=== PATIENT | female | born 1930 | race Hispanic/Latino ===

== ENCOUNTER 2016-10-20 17:23 | Inpatient (IN) | payer MEDICAID, OTHER ==
[~2016-10-20] VITALS: Ht 152.4 cm; Wt 73.0 kg
[~2016-10-20 17:23] MED LIST: ALBU8.5H2 INHALATION; CEFU500T PO; D ME PO; METO-386 PO; PRE20 PO; PRED1DRO OU
[2016-10-20 17:29] VITALS: BP 160/85; PULSE 89; RESP 28; O2SAT 97
--- NOTE | 2016-10-20 18:43 | ED.REPORT ---
HPI-Abd Pain F 40 and Over Date of Service Oct 20, 2016 ED Provider: Varun Owen MD Pt is an 86 year old female with a history of a-fib who presents to the ED complaining of RUQ abdominal pain onset yesterday. She c/o associated fever. She denies nausea, vomiting, constipation, chest pain, diarrhea, and any other symptoms. Per pt, her last PO was this morning. She denies a history of appendectomy and cholecystectomy. Nursing Notes Stated Complaint: EXTREME STOMACHE PAIN Chief Complaint: Female Abdominal Pain Nursing Notes Reviewed: Yes Allergies: Coded Allergies: Penicillins (Verified Allergy, Unknown, UNKNOWN, 08/17/13) ampicillin (Verified Allergy, Unknown, UNKNOWN, 08/17/13) Uncoded Allergies: SALMON (Allergy, Unknown, UNKNOWN, 08/17/13) Scheduled Albuterol HFA (Proair HFA) 8.5 Gm Hfa.aer.ad 2 PUFFS INHALATION Q4H Cefuroxime Axetil (Ceftin) 500 Mg Tablet 500 MG PO BID Metoprolol Succinate ER (Metoprolol Succinate ER) 25 Mg Tab.er.24h 25 MG PO DAILY Prednisolone Acetate (Pred Forte) 1 Ml Drops.susp 1 GTT OU QID Prednisone (PredniSONE) 20 Mg Tablet 60 MG PO DAILY Scheduled PRN D-Methorphan/Acetamin/Doxylamn (Vicks Nyquil Cold & Flu Liquid) 236 Ml Liquid 30 ML PO PRN PRN PRN For Congestion General Time Seen by MD: 18:38 Chief Complaint Abdominal pain Hx Obtained From: Patient Arrived By: Walk-in Sudden in Onset?: No Onset Occurred: Yesterday Symptom Duration: Since onset Location: : RUQ Quality: Painful Radiation: : Does not radiate Severity: Current: Moderate Severity: Maximum: Moderate Recent Healthcare: No recent doctor visit, No recent hospitalization Similar Sx Previous: No Past Medical History Past Medical History Cataracts Valvular heart disease Glaucoma Reports: Atrial fibrillation, Urinary tract infection Past Surgical History Denies: Appendectomy, Cholecystectomy Smoking History Never Smoker Social History Alcohol Use: Denies alcohol use Drug Use: Denies drug use Other Social History: Good social support Ambulatory Status Independent Review of Systems Constitutional: Reports: Fever Cardiovascular: Denies: Chest pain GI: Reports: Abdominal pain, Denies: Constipation, Diarrhea, Nausea, Vomiting Complete sys rev & neg: except as marked. Physical Exam Vital Signs Vital Signs (First) Date Time Temp Pulse Resp B/P Pulse Ox O2 Delivery O2 Flow Rate FiO2 10/20/16 17:29 37.9 89 28 160/85 97 Room Air Initial VS: Reviewed Head / Eyes: Atraumatic, Normocephalic Neck: Supple, Full range of motion Extremities: Vascular intact, Neuro intact Skin: Warm, Dry, No cyanosis Neurologic: Alert, Oriented Psychiatric: Mood/affect normal, Behavior normal General/Constitutional: Awake, Alert Respiratory / Chest: Atraumatic, Breath sounds NL, Breath sounds = bilat Cardiovascular: Heart rate NL, Regular rhythm, Heart sounds NL, No murmurs Abdomen: Soft, No guarding, No rebound Tenderness/Guarding/Rebound: Positive: Tender RUQ... (Mild) Back: Atraumatic, Full range of motion Interpretation & Diagnostics Lab Results Interpretation Result Diagram: 10/20/164 10/20/164 Test 10/20/16 18:54 White Blood Count 11.6th/mm3 (3.8-10.1) Red Blood Count 4.41mil/mm3 (3.90-5.20) Hemoglobin 13.0g/dL (12.0-15.6) Hematocrit 38.9% (35.0-46.0) Mean Corpuscular Volume 88.2fL (81-100) Mean Corpuscular Hemoglobin 29.5pg (27.0-35.0) Mean Corpuscular Hemoglobin Concent 33.4% (32.0-37.0) Red Cell Distribution Width 14.7% (12.3-15.4) Platelet Count 226bil/L (150-400) Neutrophils (%) (Auto) 83.4% (40-74) Lymphocytes (%) (Auto) 8.8% (14-46) Monocytes (%) (Auto) 7.0% (4-12) Eosinophils (%) (Auto) 0.3% (0-5) Basophils (%) (Auto) 0.2% (0-3) Sodium Level 138mEq/L (134-144) Potassium Level 3.8mEq/L (3.5-5.2) Chloride Level 101mEq/L (97-108) Carbon Dioxide Level 22mmol/L (18-29) Blood Urea Nitrogen 17mg/dL (8-27) Creatinine 0.55mg/dL (0.57-1.00) Estimat Glomerular Filtration Rate 150mL/min (>59) Glucose Level 134mg/dL (60-99) Lactic Acid Level 1.2mmol/L (0.4-2.0) Calcium Level 8.6mg/dL (8.5-10.1) Magnesium Level 1.9mg/dL (1.6-2.6) Total Bilirubin 2.2mg/dL (0.0-1.2) Aspartate Amino Transf (AST/SGOT) 372U/L (0-50) Alanine Aminotransferase (ALT/SGPT) 189U/L (0-32) Alkaline Phosphatase 165U/L (25-165) Troponin T < 0.010ug/L (0.0-0.011) Total Protein 7.1g/dL (6.4-8.4) Albumin 4.1g/dL (3.4-5.0) Lipase 33U/L (13-60) ECG Interpretation ECG Interpretation: Sinus rhythm with a rate of [address] depression in V4V5 Inverted t-waves, which is unchanged from old Time: 19:08 Interpreted by: ED physician X-Ray Chest Interpretation Chest Xray Interpretation: IMPRESSION: Acute disease is not seen an upright portable chest. Dictated by: Gianni Mccormick M.D. on 10/20/2016 at 19:28 View: Portable, 1 view Interpretation / Wet Read by: Interpret - Radiologist US Abdominal Aorta IMPRESSION: Sludge in the gallder. Common bile duct just above normal limits measuring 7 mm. In the proper clinical setting, nonemergent MRI/MRCP can be done for further evaluation. Transmitted to the ED at 23:14 by Jordi Jimenez M.D. Exam Performed by: Allied health pract (photogrammetric technician) Re-Eval/Medical Decision Med Decision/Clinical Course His external female with right upper quadrant pain 1 day. Elevated LFTs. Lipase is normal. Ultrasound no evidence of cholecystitis there is a mildly dilated common bile duct. I discussed with GI who recommends MRCP. Patient will be admitted for MRCP in the morning. Given one dose of Rocephin and Flagyl given penicillin allergy. Admit hospitalist. Source of Hx: Old records Re-Evaluation/Progress : Time of Eval: 23:14 Re-Evaluation/Progress Note: Pt rechecked. Informed pt of US results. Informed pt of plan for admission. Pt understands and agrees with plan for admission. All questions addressed. Consultation #1: Referral / Consult Name: Kalpana Parks MD Call Returned at: 23:42 Banana Expert: Agrees with eval, Agrees with plan Note: Discussed pt's case. Recommends admission for MRCP in morning. Consultation #2: Referral / Consult Name: Yon Moody MD Consulted With: Hospitalist Call Returned at: 23:52 Banana Expert: Will see patient, Agrees with eval, Agrees with plan, Accepts admit Counseled Regarding: Diagnosis, Lab results, Need for admission Discharge & Departure Primary Impression: Elevated LFTs Additional Impression: Hepatitis Disposition: ADMITTED TO HOSPITAL Discharge Condition All VS Reviewed: Yes Condition: Stable Referrals: Arminda Jiménez MD (PCP) Scribe Attestation Portions of this note were transcribed by Maxine Thomson. I, Dr. Owen personally performed the history, physical exam and medical decision-making; I reviewed and confirmed the accuracy of the information in the transcribed note. Signed by: Papo Ness, 10/20/16. copies to: Arminda Jiménez MD, Ben M MD Oct 20, 2016 18:43 Maxine Whittaker Oct 20, 2016 19:49
[2016-10-20 18:57] LABS: BASOPHILS % (AUTO) 0.2 % (0-3); EOSINOPHILS % (AUTO) 0.3 % (0-5); Mean Corpuscular Hemoglobin 29.5 pg (27.0-35.0); Mean Corpuscular Volume 88.2 fL (81-100); NEUTROPHILS % (AUTO) 83.4 % (40-74); Platelet Count 226 bil/L (150-400)
[2016-10-20 19:21] LABS: TROPONIN T < 0.010 ug/L (0.0-0.011)
[2016-10-20 19:31] LABS: Magnesium 1.9 mg/dL (1.6-2.6)
--- NOTE | 2016-10-20 19:31 | DRSVH ---
PROCEDURE: X-RAY CHEST ONE VIEW, PORTABLE ([id number]) INDICATIONS: abd pain TECHNIQUE: One view of the chest was acquired. COMPARISON: [facility], CR, XR CHEST 2VW, 07/19/2016, 15:36. FINDINGS: Surgical changes and devices: None. Lungs and pleura: No pleural effusions or pneumothorax. Lungs are clear. Mediastinum: Mediastinal contours appear normal. Here is elongated and the great vessels are tortuou s. These findings are unchanged since previous chest x-rays. Heart size is normal. Bones and chest wall: No suspicious bony lesions. Overlying soft tissues appear unremarkable. IMPRESSION: Acute disease is not seen an upright portable chest. Dictated by: Gianni Mccormick M.D. on 10/20/2016 at 19:28 Approved by: Gianni Mccormick M.D. on 10/20/2016 at 19:29
[2016-10-20] MEDS ORDERED: 0.9% Sodium Chloride 500 ML IV ONE (19:47)
[2016-10-20] MEDS ORDERED: Ondansetron 2 mg/mL 2 mL Inj IVPUSH PRN (19:50)
[2016-10-21] VITALS (8 sets, daily range): BP systolic 124–140; BP diastolic 44–71; PULSE 59–73; RESP 15–18; O2SAT 92–94
[2016-10-21] MEDS ORDERED: cefTRIAXone Inj 2,000 MG in Dextrose 5% Minibag Plus 50 ML IV ONE ×2
[2016-10-21] MEDS ORDERED: metroNIDAZOLE Inj 500 MG in IV Premix 1 EACH IV ONE
[2016-10-21] MEDS ORDERED: Lactated Ringer's 1,000 ML IV SCH (00:12)
[2016-10-21] MEDS ORDERED: Polyethylene Glycol (PEG) 17 Gm Powder PO PRN (00:15)
[2016-10-21] MEDS ORDERED: Ondansetron 2 mg/mL 2 mL Inj IVPUSH PRN (00:15)
[2016-10-21] MEDS ORDERED: Alum-Mag Hydrox-Simeth 30 mL Suspension PO PRN ×2 (00:15)
--- NOTE | 2016-10-21 00:51 | PCM.HPMED ---
Subjective Date of Service Oct 20, 2016 Primary Provider: Admitting Physician: Primary Care Physician: Arminda Jiménez MD Attending Physician: Admit Status: From the Emergency Department Chief Complaint: Stomach pain History of Present Illness: Ms. Ny is an 86-year-old female with a past medical history significant for atrial fibrillation who presented to the ED with extreme right upper quadrant abdominal pain that started yesterday. She states the pain was worse with eating or drinking, and nothing makes it better. The pain is a sharp intermittent pain that does not radiate outside the right upper quadrant. She reports having intermittent fevers with nausea and denies any vomiting, chest pain, diaphoresis, diarrhea, recent diet changes. She has never experienced anything like this before. Review of Systems: Comprehensive review of systems was conducted with the patient and found to be negative except as noted above in HPI. Allergies Coded Allergies: Penicillins (Verified Allergy, Unknown, UNKNOWN, 08/17/13) ampicillin (Verified Allergy, Unknown, UNKNOWN, 08/17/13) Uncoded Allergies: SALMON (Allergy, Unknown, UNKNOWN, 08/17/13) Home Medications Albuterol HFA (Proair HFA) 8.5 Gm Hfa.aer.ad 2 PUFFS INHALATION Q4H Cefuroxime Axetil (Ceftin) 500 Mg Tablet 500 MG PO BID Metoprolol Succinate ER (Metoprolol Succinate ER) 25 Mg Tab.er.24h 25 MG PO DAILY Prednisolone Acetate (Pred Forte) 1 Ml Drops.susp 1 GTT OU QID Prednisone (PredniSONE) 20 Mg Tablet 60 MG PO DAILY Scheduled PRN D-Methorphan/Acetamin/Doxylamn (Vicks Nyquil Cold & Flu Liquid) 236 Ml Liquid 30 ML PO PRN PRN PRN For Congestion PMH Cataracts Valvular heart disease Glaucoma Atrial fibrillation Urinary tract infections Surgical History Denies Family History Denies Social History Hx Alcohol Use: No Hx Substance Use: No Smoking Status: Never Smoker Living Arrangement: with Family Exam Vital Signs Vital Sign - Last Date Time Temp Pulse Resp B/P Pulse Ox O2 Delivery O2 Flow Rate FiO2 10/20/16 17:29 37.9 89 28 160/85 97 Room Air Intake and Output 10/20/16 10/20/16 10/21/16 Cumulative From/Thru 15:00 23:00 07:00 10/20/16 20:27 - 10/20/16 20:27 Intake Total 500 ml 500 ml Balance 500 ml 500 ml Intake IV Total 500 ml 500 ml Exam General: Elderly female in no acute distress, well-developed, well- nourished, appropriately interactive HEENT: Normocephalic, atraumatic. External ears without defect. Pupils equal, round, and reactive to light and accommodation. Anicteric sclerae, moist conjunctivae, and no lid lag. Oropharynx free of erythema and cobble stoning with moist mucosa. Neck: Supple with full range of motion. No jugular venous distension. No bruits. No lymphadenopathy or thyromegaly. Cardiovascular: Regular rate and rhythm with no murmurs, rubs, or gallops appreciated Pulmonary: Clear to auscultation bilaterally with no crackles, wheezes, or rhonchi. Normal respiratory effort with no use of accessory muscles. Abdomen: Bowel tones present. Soft, nondistended, tenderness in the RUQ without guarding or rebound. No hepatosplenomegaly or masses appreciated. Extremities: No clubbing, cyanosis, edema, or lymphadenopathy appreciated. Skin: Normal temperature, turgor, and texture; no rash, ulcers, or subcutaneous nodules appreciated. Neurological: Cranial nerves grossly intact. Normal muscle strength, tone, and bulk without focal deficit. Psychiatric: Normal mood and affect. Alert and oriented to person, place, and time. Lab and Diagnostics Result Diagram: 10/20/16185310/20/161853 Microbiology Blood cultures, pending X-Rays, CTs and MRIs Abdominal ultrasound, 10/20/2016 IMPRESSION: Sludge in the gallbladder. Common bile duct just above normal limits measuring 7 mm. In the proper clinical setting, nonemergent MRI/MRCP can be done for further evaluation. Transmitted to the ED at 23:14 by Jordi Jimenez M.D. Chest x-ray 10/20/2016 IMPRESSION: Acute disease is not seen an upright portable chest. Dictated by: Gianni Mccormick M.D. on 10/20/2016 at 19:28 Approved by: Gianni Mccormick M.D. on 10/20/2016 at 19:29 12-lead ECG ECG Interpretation: Sinus rhythm with a rate of [address] depression in V4V5 Inverted t-waves, which is unchanged from old Time: 19:08 Interpreted by: ED physician Assessment & Plan Ms. Ny is an 86-year-old female with a past medical history significant for atrial fibrillation who presented to the ED with extreme right upper quadrant abdominal pain that started yesterday 10/19/2016. She has been unable to eat anything for about 24 hours. Right upper quadrant abdominal pain, present on admission. Acute. Ongoing. - Patient has RUQ abdominal pain, worse with eating with elevated LFTs (AST 372 , ALT 189, total bili 2.2) - Ultrasound significant for dilated common bile duct, sludgy gallbladder - Dr. Rock of Gastroenterology consulted from the ED, appreciate his recommendations: MRCP in the morning Start antibiotics NPO after midnight - Continue ceftriaxone 2 g daily and metronidazole 500 mg daily - IVF NS at 60cc/hr as patient is complaining of extreme thirst but she has an unclear cardiac history; monitor for fluid overload COPD, present on admission. Chronic. - Continue albuterol 2 puffs every 4 hours - Continue prednisone 60 mg daily History of atrial fibrillation, present on admission. Chronic. - Patient in NSR - Monitor on telemetry - Continue metoprolol succinate 25 mg daily PRN Medications - Acetaminophen as needed for mild pain/fever/headache - Bowel regimen as needed - Antiemetic as needed - Subcutaneous heparin on board. SCDs in place. Patient status: Patient is admitted under inpatient status with expected length of stay greater than 2 midnights due to severity of presenting symptoms, risk of adverse event, and complexity of treatment plan. VTE Prophylaxis: Sub-Q Heparin (Unfractionated) VTE Mechanical Devices: Intermittant Pneumatic CD Resuscitation Status: CPR: Attempt Resuscitation Attending Statement The patient was seen and examined together with Dr. Irby on 10/20 and I agree with the history, exam and plan as outlined in the note above. Michael Irby DO Oct 21, 2016 00:51 Yon Moody MD Oct 21, 2016 06:48
[2016-10-21] MEDS ORDERED: 0.9% Sodium Chloride 1,000 ML IV SCH (01:10)
[2016-10-21] MEDS: Heparin 5,000 Unit/mL Inj SUBQ SCH ×3 (03:36→17:51)
[2016-10-21 05:27] LABS: BASOPHILS % (AUTO) 0.1 % (0-3); EOSINOPHILS % (AUTO) 2.1 % (0-5); MONOCYTES % (AUTO) 8.3 % (4-12); Mean Corpuscular Hemoglobin 29.2 pg (27.0-35.0); Mean Corpuscular Volume 88.3 fL (81-100); NEUTROPHILS % (AUTO) 68.7 % (40-74); Platelet Count 210 bil/L (150-400)
[2016-10-21] MEDS: metroNIDAZOLE Inj 500 MG in IV Premix 1 EACH IV SCH ×2 (10:18→22:29)
[2016-10-21 11:03] LABS: APPEARANCE,URINE CLEAR (CLEAR,HAZY); COLOR,URINE DARK YELLOW (YELLOW)
[2016-10-21 11:04] LABS: OCCULT BLOOD,URINE SMALL (NEGATIVE); UROBILINOGEN,URINE NORMAL (NORMAL)
[2016-10-21 11:05] LABS: ICTOTEST,URINE POSITIVE (Negative)
--- NOTE | 2016-10-21 12:06 | DRSVH ---
PROCEDURE: US ABDOMEN, LIMITED ([id number]) INDICATIONS: RUQ US TECHNIQUE: Real-time focused scanning was performed of the abdomen, with image documentation. COMPARISON: None. FINDINGS: There are gallstones. The gallbladder wall measures 2.4 mm. Common bile duct is slightly pr ominent measuring 7.3 mm. IMPRESSION: Cholelithiasis. Prominent common bile duct. Please correlate with serum bilirubin. If cl inical symptoms persist or clinical suspicion for pathology is high, MRCP is suggested for further ev aluation. No significant discrepancy with the shift commander radiology preliminary report. Dictated by: Marvin Rodriguez M.D. on 10/21/2016 at 12:02 Approved by: Marvin Rodriguez M.D. on 10/21/2016 at 12:05
--- NOTE | 2016-10-21 15:23 | DRSVH ---
PROCEDURE: MR ABDOMEN MRCP INDICATIONS: dilated CBD, severe RUQ pain TECHNIQUE: Coronal HASTE through the abdomen, axial 2-D FLASH in- and [id number], and breath-hold T2 FSE with fat saturation through the biliary system and pancreas. Oblique coronal and axial thin-slice HASTE, radial thick-slab HASTE centered on the extrahepatic bile ducts. Intravenous secretin: Not requested. COMPARISON: None. FINDINGS: Image quality: Exam is severely suboptimal secondary to excessive, uncontrollable motion artifact Pancreas and biliary system: Intrahepatic bile ducts appear normal in size although only partially vi sualized. There is dilation of the extrahepatic bile ducts, measuring at least 10 mm however evaluati on limited by motion artifact. Due to motion artifact, intraluminal filling defects cannot be exclude d. Pancreas is normal in morphology, without adjacent soft tissue edema. Pancreatic duct is normal in caliber, without developmental anomalies. Gallbladder is partially obscured by motion artifact. The previously described gallstones are not well-seen as a result. Other solid organs: Liver and spleen are normal in size. No adrenal nodules. No definite hydronephr osis. Suboptimally evaluated multiple presumed right renal cysts. Nodes and vessels: No retroperitoneal or mesenteric adenopathy by size criteria. Aorta and inferior vena cava are normal in size. Bowel and peritoneum: Unenhanced bowel loops are normal in caliber. No free fluid. Lung bases: No basal pleural effusions. Heart size is normal. Bones and soft tissues: No ventral hernias. Lateral curvature of the spine. Bone marrow is of oksana l overall signal. IMPRESSION: Essentially nondiagnostic examination due to uncontrollable motion artifact. Dilated extr ahepatic bile ducts are again noted however intraluminal filling defects (while not discretely visual ized) cannot be excluded due to motion degraded images. Dictated by: Epifanio Del Real M.D. on 10/21/2016 at 15:15 Approved by: Epifanio Del Real M.D. on 10/21/2016 at 15:21
[2016-10-21 20:33] LABS: INR 1.02 ratio
[2016-10-21] MEDS: cefTRIAXone Inj 2,000 MG in Dextrose 5% Minibag Plus 50 ML IV SCH (23:24)
[2016-10-21] MEDS: Dextrose 5% 0.9% NaCl 1,000 ML IV SCH (23:24)
[2016-10-22] VITALS (9 sets, daily range): BP systolic 131–176; BP diastolic 54–78; PULSE 55–67; RESP 16–20; O2SAT 93–94
[2016-10-22] MEDS: Heparin 5,000 Unit/mL Inj SUBQ SCH ×3 (00:49→16:30)
[2016-10-22 06:27] LABS: BASOPHILS % (AUTO) 0.3 % (0-3); EOSINOPHILS % (AUTO) 7.4 % (0-5); MONOCYTES % (AUTO) 10.5 % (4-12); Mean Corpuscular Hemoglobin 29.1 pg (27.0-35.0); Mean Corpuscular Volume 90.6 fL (81-100); NEUTROPHILS % (AUTO) 50.6 % (40-74); Platelet Count 190 bil/L (150-400)
[2016-10-22] MEDS: metroNIDAZOLE Inj 500 MG in IV Premix 1 EACH IV SCH ×2 (08:19→19:39)
--- NOTE | 2016-10-22 08:35 | PCM.PNMED ---
Subjective Date of Service Oct 22, 2016 Subjective Patient seen and examined. Says there is no pain anymore. Discussed with Dr. Rock ( GI), she might have already passed the stone. Will get surgery to see the patient for possible cholecystectomy. Vitals noted. Exam Vital Signs Vital Sign - Last Date Time Temp Pulse Resp B/P Pulse Ox O2 Delivery O2 Flow Rate FiO2 10/22/16 06:23 65 10/22/16 05:40 36.4 16 131/54 94 10/22/16 01:20 Room Air Intake and Output 10/21/16 10/21/16 10/22/16 Cumulative From/Thru 15:00 23:00 07:00 10/20/16 20:27 - 10/22/16 06:11 Intake Total 726 ml 728 ml 2105 ml Output Total 0 ml Balance 726 ml 728 ml 2105 ml Intake Oral 0 ml IV Total 726 ml 728 ml 2105 ml Output Urine Total 0 ml Exam General: Elderly female in no acute distress, well-developed, well- nourished, appropriately interactive Cardiovascular: Regular rate and rhythm with no murmurs, rubs, or gallops appreciated Pulmonary: Clear to auscultation bilaterally with no crackles, wheezes, or rhonchi. Normal respiratory effort with no use of accessory muscles. Abdomen: Bowel tones present. Soft, nondistended, tenderness in the RUQ without guarding or rebound. No hepatosplenomegaly or masses appreciated. Extremities: No clubbing, cyanosis, edema, or lymphadenopathy appreciated. Skin: Normal temperature, turgor, and texture; no rash, ulcers, or subcutaneous nodules appreciated. Lab and Diagnostics Result Diagram: 10/22/16 0530 10/22/16 0530 Microbiology Blood cultures, pending X-Rays, CTs and MRIs Abdominal ultrasound, 10/20/2016 IMPRESSION: Sludge in the gallbladder. Common bile duct just above normal limits measuring 7 mm. In the proper clinical setting, nonemergent MRI/MRCP can be done for further evaluation. Transmitted to the ED at 23:14 by Jordi Jimenez M.D. Chest x-ray 10/20/2016 IMPRESSION: Acute disease is not seen an upright portable chest. Dictated by: Gianni Mccormick M.D. on 10/20/2016 at 19:28 Approved by: Gianni Mccormick M.D. on 10/20/2016 at 19:29 12-lead ECG ECG Interpretation: Sinus rhythm with a rate of [address] depression in V4V5 Inverted t-waves, which is unchanged from old Time: 19:08 Interpreted by: ED physician Assessment & Plan Ms. Ny is an 86-year-old female with a past medical history significant for atrial fibrillation who presented to the ED with extreme right upper quadrant abdominal pain that started yesterday 10/19/2016. She has been unable to eat anything for about 24 hours. Right upper quadrant abdominal pain, present on admission. Acute. Ongoing. - Patient has RUQ abdominal pain, worse with eating with elevated LFTs (AST 372 , ALT 189, total bili 2.2) at admission, LFTs and bili trended down today - Dr. Rock of Gastroenterology consulted, based on the lab results, plan is to get surgery on board for possible cholecystectomy - Continue ceftriaxone 2 g daily and metronidazole 500 mg daily h/o bronchiti not active - patient not sure if she has, has not received steroids inpatient so far - she was in ER in 2016, was prescribed prednisone then - CXR clear, no signs of COPD History of atrial fibrillation as per admission - Patient in NSR - Monitor on telemetry, has been sinus since admission - patient has not taken any meds in last 2 years. PRN Medications - Acetaminophen as needed for mild pain/fever/headache - Bowel regimen as needed - Antiemetic as needed - Subcutaneous heparin on board. SCDs in place. Patient status: Patient is admitted under inpatient status with expected length of stay greater than 2 midnights due to severity of presenting symptoms, risk of adverse event, and complexity of treatment plan. VTE Prophylaxis: Sub-Q Heparin (Unfractionated) VTE Mechanical Devices: Intermittant Pneumatic CD Resuscitation Status: CPR: Attempt Resuscitation Time spent 35 ,mins Prashant Thurston MD Oct 22, 2016 08:35 Prashant Thurston MD Oct 22, 2016 08:35
--- NOTE | 2016-10-22 12:41 | DRSVH ---
[facility] [address] [place] [address] Echocardiogram Report Name: JEIMY PRIEST Study Date: 10/22/2016 Height: 60 in Hospital Exam Location: [facility] Weight: 145 lb Gender: Female BSA: 1.6 m2 : 1930 Age: 86 yrs BP: 137/65 mmHg Reason For Study: Pre-surgical evaluation Ordering Physician: Performed By: Alice Ochoa Referring Physician: Dr. Arminda Jiménez Interpretation Summary 1. Normal left ventricular size with proximal septal thickening and an estimated EF of 50-55% 2. Normal right ventricular size and systolic function. 3. Mean aortic valve gradient is consistent with mild valvular stenosis. Mild insufficiency 4. Mild to moderate mitral regurgitation into a dilated left atrium. Compared to the previous study, LV/RV function are relatively stable. There has been some progression of aortic valve disease Procedure: A two-dimensional transthoracic echocardiogram with color flow and Doppler was performed. The study quality was technically adequate. Comparison is made with the echocardiogram of 07/24/2013. The patient had frequent PVCs during the exam. The patient was in normal sinus rhythm during the exam. Left Ventricle: The left ventricle is normal in size. Proximal septal thickening is noted. The ejection fraction is estimated to be 50-55%. There are no focal wall motion abnormalities. Assessment of diastolic parameters suggests a pseudonormalization pattern, consistent with elevated filling pressures. Right Ventricle: The right ventricle is normal in size and function. Atria: The left atrium is severely dilated. The right atrium is moderately dilated. There is no Doppler evidence for an interatrial shunt. Mitral Valve: The mitral valve chordae are thickened and/or calcified. The mitral valve leaflets are mildly calcified. There is mild to moderate mitral regurgitation. The mitral regurgitant jet is eccentrically directed. Aortic Valve: The aortic valve is trileaflet. The aortic valve is mildly calcified. The peak aortic velocity is 2.2 m/sec. The aortic valve mean gradient is 9.4 mmHg. The peak aortic velocity on the previous exam was 2.3 m/sec. Velocity ratio 0.46. Mean gradient is consistent with mild valvular stenosis. Velocity ratio suggests mild to moderate stenosis. There is mild aortic regurgitation. Tricuspid Valve: The tricuspid valve leaflets are thin and pliable. There is mild tricuspid regurgitation. The right ventricular systolic pressure is estimated at 43 mmHg assuming a right atrial pressure of 3 mm Hg. Pulmonic Valve: The pulmonic valve is not well visualized. There is trace pulmonic regurgitation. Great Vessels: The aortic root is normal size. There is aortic root sclerosis/calcification. The ascending aorta is normal in size. The IVC is of normal diameter and collapses greater than 50% with a sniff. This suggests a low right atrial pressure of 3 mm Hg. Pericardium/ Pleura There is no pericardial effusion. MMode/2D Measurements & Calculations LVIDd: 4.6 cm RA long axis LVOT diam LVIDs: 3.4 cm LA A2 area: 27.7 cm FS: 25.3 % LA A4 area: 24.8 cm RA area AoV Opening EPSS: 1.2 cm LA length (vol): 6.0 cm IVSd: 1.5 cm LA vol: 96.4 ml : 21.1 cm Ao root diam LVPWd: 0.80 cm LA vol index RA vol : 65.7 ml Aortic Jxn RA IVC diam: 1.9 cm : 40.3 mm2 asc Aorta Diam: 3.4 cm LV fried. diameter/BSA LV sys. diameter/BSA RVD1 (basal) RVD2 (mid) (cm/m^2): 2.8 (cm/m^2): 2.1 : 2.3 cm TAPSE: 2.1 cm Doppler Measurements & Calculations Ao V2 max MV E max issa MV E/A: 1.2 TR max issa : 218.9 cm/sec : 111.9 cm/sec Med Peak E' Issa : 316.0 cm/sec Ao max PG MV A max issa TR max PG : 19.2 mmHg : 92.7 cm/sec E/E' med: 28.5 : 40.0 mmHg Ao mean PG MV P1/2t: 44.9 msecLat Peak E' Issa PA V2 max : 73.2 cm/sec LVOT Max Issa MR ERO: 0.14 cm2 E/E' lat: 16.3 PA mean PG : 89.9 cm/sec E/e' average: 22.4 PA Accel Time JONI(I,D): 1.3 cm : 0.09 sec sev ratio AI P1/2t : 565.7 msec AI dec slope : 231.5 cm/s2c MV dec time MV P1/2t max issa Ao V2 mean LV V1 max PG : 0.15 sec : 142.8 cm/sec MVA(P1/2t): 4.9 cm2Ao V2 VTI: 51.6 cm LV V1 VTI JONI(V,D): 1.2 cm2 : 23.3 cm MR flow rate PA V2 mean JONI indexed to BSA : 49.2 cm/sec (cm^2/m^2): 0.78 : 74.2 cm3/sec MR PISA radius Reading Physician:12:40 PM
--- NOTE | 2016-10-22 14:31 | CONS ---
[address] [address] CONSULTATION REPORT PATIENT: JEIMY PRIEST : 1930 MR#: [id number] ADMIT: 10/21/2016 JOB ID: [id number] DATE OF SERVICE: 10/22/2016 CHIEF COMPLAINT: An 86-year-old lady with cholelithiasis and possible choledocholithiasis seen in consultation at the request of Prashant Thurston MD, and Toan Parks MD. HISTORY OF PRESENT ILLNESS: The patient is an 86-year-old lady who presented to the emergency department two days ago with severe right-sided abdominal pain. She has had a similar episode around a year ago. The pain was worse with food intake and it was not getting better. She was evaluated in the emergency department and was diagnosed with possible common bile duct stones and was admitted with antibiotics and has been kept without eating. Dr. Parks and Dr. Thurston consulted me today because on the MRCP she had done today it was not clear that she had retained common bile duct stones and her liver function tests were indeed improving. Her pain seems to have resolved and at this moment she is not having any abdominal pain. OTHER MEDICAL PROBLEMS: 1. Atrial fibrillation in the past. 2. Urinary tract infections. 3. Bronchitis. 4. The admitting history and physical talks about chronic obstructive pulmonary disease, but I do not see any evidence of this and she denies smoking in her lifetime. PRIOR OPERATIONS: None. SOCIAL HISTORY: She lives with her daughter. She speaks only Polish, and she reports being able to walk without any problems. She is generally active but she does not go up stairs. FAMILY HISTORY: No family history of cancer or heart disease. SOCIAL HISTORY: Again, she has never smoked. She does not consume alcohol. MEDICATIONS AT HOME: None. ALLERGIES: 1. PENICILLIN. 2. AMPICILLIN. REVIEW OF SYSTEMS: Twelve point review of systems negative other than the pertinent positives noted in the history of present illness and other medical problems. INVESTIGATIONS: Labs from October 22, 2016: WBC 6.1, hemoglobin 11.8, platelet count 190. Bilirubin 1.0, down from 2.8. AST 110, down from 372. ALT 147, down from 250. Albumin 3.1. Creatinine 0.4. INR 1.02. Chest x-ray, from October 20, 2016, was normal. Abdominal ultrasound, from October 20, 2016, showed gallstones with gallbladder wall measuring 2.4 mm and common bile duct measuring 7.3 mm. MRCP, performed on October 21, 2016, showed some dilation of the extrahepatic bile duct measuring 10 mm, but there was significant motion artifact and intraluminal filling defects could not be clearly visualized. PHYSICAL EXAM: An 86-year-old lady in no acute distress. Temperature 36.4, BMI 28.4, pulse 65, blood pressure 132/62, saturating 93% on room air. Eyes: Normal pupils, conjunctivae. Ears, nose, and throat: Normal external appearance. Respiratory normal effort, clear to auscultation. Cardiovascular: Regular rate and rhythm. Gastrointestinal: Abdomen soft. Nontender to palpation. Neurologic: No gross deficits. Psych: Alert, appropriate. Skin normal. ASSESSMENT AND PLAN: Cholelithiasis with possible choledocholithiasis. I discussed the pathophysiology and treatment rationale for gallstone disease and recommended laparoscopic cholecystectomy with cholangiogram. I discussed her case with Dr. Parks and Dr. Thurston, and as long as she has not been on chronic steroids and she is medically stable for an operation, I believe proceeding with a laparoscopic cholecystectomy with cholangiogram with plans for an ERCP if I am not able to clear any retained common bile duct stones is appropriate. Discussed the risks, benefits, and the alternatives, and she wished to proceed. The entire visit was undertaken with the help of a agricultural agent.
--- NOTE | 2016-10-22 16:13 | CONS ---
[address] [address] CONSULTATION REPORT PATIENT: JEIMY PRIEST : 1930 MR#: [id number] ADMIT: 10/21/2016 JOB ID: [id number] DATE OF SERVICE: REASON FOR CONSULTATION: Suspected choledocholithiasis. PHYSICIAN REQUESTING CONSULTATION: Varun Owen MD. HISTORY OF PRESENTING ILLNESS: The patient is an 86-year-old woman with past medical history of atrial fibrillation who presented to the emergency department with an episode of right upper quadrant pain the day prior to admission. Pain worsened with eating and drinking. There were no relieving factors. She describes the pain as a sharp pain without radiation in the right upper quadrant. She denied any associated vomiting or nausea. She did have subjective fevers. She had a similar episode, as per patient's granddaughter, about a month ago. Currently, she is without any pain. On admission to the emergency department, she was noted to have LFTs that were elevated with a total bili of 2.2, AST of 372, ALT of 189, alk phos of 165. This then worsened the following day to a total bili of 2.8 and AST of 345 and ALT of 250, alkaline phosphatase of 180. Today, her LFTs have improved to where her total bili has normalized and her AST is now 110, ALT is 147, and alkaline phosphatase is 152. She has had multiple imaging tests of the abdomen which included an ultrasound of the abdomen which showed cholelithiasis, a common bile duct measuring approximately 7.3 mm. This then led to an MRCP which revealed a dilated bile duct measuring approximately 10 mm. However, it was a poor study and no obvious filling defects were noted. As her LFTs improved today and she remains asymptomatic, I had recommended that General Surgery be consulted for laparoscopic cholecystectomy with intraoperative cholangiogram. PAST MEDICAL HISTORY: Significant for valvular heart disease, atrial fibrillation, glaucoma, urinary tract infections, and cataracts. PAST SURGICAL HISTORY: No past surgical history. FAMILY HISTORY: No significant family history. SOCIAL HISTORY: No alcohol or tobacco use. She lives with family. HOME MEDICATIONS: Include: 1. Albuterol. 2. Ceftin which she has been taking 500 mg p.o. b.i.d. 3. Prednisone eye drops. 4. Oral prednisone 60 mg daily. ALLERGIES: She has allergies to: 1. PENICILLIN. 2. SALMON. Her 10-point review of systems is otherwise unremarkable. CURRENT HOSPITAL MEDICATIONS: Include: 1. Ceftriaxone 2 g daily. 2. Metronidazole 500 mg IV q.12. 3. Heparin subcu 5000 units q.8. 4. Maalox p.r.n. 5. Zofran p.r.n. 6. Senokot p.r.n. 7. Polyethylene glycol p.r.n. 8. Tylenol p.r.n. PHYSICAL EXAM: Her temperature is 36.7. her pulse is 63. blood pressure is 157/76, respiratory rate is 20, O2 saturation 94% on room air. Generally, she is an elderly-appearing woman in no apparent distress. HEENT: No pallor. No icterus. Oropharynx is clear. Chest exam is clear to auscultation bilaterally. Cardiovascular exam: Regular rate and rhythm. Abdomen is soft, nontender, nondistended, without hepatosplenomegaly. Extremities without edema, clubbing or cyanosis. Please see EMR for laboratory data and imaging test results. ASSESSMENT/PLAN: An 86-year-old woman presenting with acute onset epigastric pain with cholestatic liver function tests and dilated bile duct on imaging tests. As her LFTs have improved and her pain has resolved, I suspect she may have passed a common bile duct stone. Therefore, recommend surgical consultation with laparoscopic cholecystectomy, intraoperative cholangiogram, and if her intraoperative cholangiogram should reveal any filling defects, I will be available for ERCP to clear these filling defects. This was discussed with the primary team as well as the patient and they all stated understanding. Thanks for allowing me to participate in the patient's care. If you have any further questions, please do not hesitate to contact me.
[2016-10-22] MEDS: diphenhydrAMINE-Zinc 2%-0.1% 30 Gm Cream TOPICAL PRN (17:51)
[2016-10-22] MEDS: Dextrose 5% 0.9% NaCl 1,000 ML IV SCH (17:51)
[2016-10-23] VITALS (13 sets, daily range): BP systolic 149–199; BP diastolic 63–86; PULSE 58–81; RESP 12–19; O2SAT 92–99
[2016-10-23] MEDS: cefTRIAXone Inj 2,000 MG in Dextrose 5% Minibag Plus 50 ML IV SCH (00:36)
[2016-10-23] MEDS: Heparin 5,000 Unit/mL Inj SUBQ SCH ×3 (00:37→16:09)
[2016-10-23] MEDS: Dextrose 5% 0.9% NaCl 1,000 ML IV SCH ×2 (04:00→20:40)
[2016-10-23 05:45] LABS: BASOPHILS % (AUTO) 0.4 % (0-3); EOSINOPHILS % (AUTO) 5.7 % (0-5); MONOCYTES % (AUTO) 10.1 % (4-12); Mean Corpuscular Hemoglobin 29.1 pg (27.0-35.0); Mean Corpuscular Volume 91 fL (81-100); NEUTROPHILS % (AUTO) 49.8 % (40-74); Platelet Count 236 bil/L (150-400)
--- NOTE | 2016-10-23 07:07 | PCM.HPANE ---
Patient Data Surgeon Admitting Provider:Yon Moody MD Attending Provider:Prashant Thurston MD Primary Care Physician:Arminda Jiménez MD Other Provider: Reason for Visit Hepatitis HEPATITIS Ht/WT & BMI Height (Feet): 5 Height (Inches): 0.00 Weight (Kilograms): 67.600 Body Mass Index 28.83 Allergies Coded Allergies: Penicillins (Verified Allergy, Unknown, UNKNOWN, 08/17/13) ampicillin (Verified Allergy, Unknown, UNKNOWN, 08/17/13) Uncoded Allergies: SALMON (Allergy, Unknown, UNKNOWN, 08/17/13) Past Anesthesia History Anesthesia History: Denies:: Anesthesia Reactions, Malignant Hyperthermia Diabetes History Hx Diabetes?: No Current Bedside Blood Glucose: 109 MRSA MRSA: No Medications Active Scripts Cefuroxime Axetil (Ceftin)500 Mg [id number] Mg PO BID #20 TAB Prov:Deric Luna MD 04/13/15 Prednisone (PredniSONE)20 Mg [id number] Mg PO DAILY #15 TABLET Prov:Deric Luna MD 04/13/15 Albuterol HFA (Proair HFA)8.5 Gm Hfa.aer.ad2 Puffs INHALATION Q4H #1 INHALER Prov:Deric Luna MD 04/13/15 Reported Medications Prednisolone Acetate (Pred Forte)1 Ml Drops.susp1 Gtt OU QID 08/17/13 D-Methorphan/Acetamin/Doxylamn (Vicks Nyquil Cold & Flu Liquid)236 Ml Frxczb82 Ml PO PRN PRN For Congestion 08/17/13 Metoprolol Succinate ER 25 Mg Tab.er.24h25 Mg PO DAILY 30 Days Ref 0 08/17/13 History History of ENT Problems?: Yes HEENT History: Positive for:: Cataracts (S/P EXTRACTIONS) Denture Type: None Teeth Condition: Tooth Decay Missing Teeth Hx of Heart Problems?: Yes Cardiovascular History: Positive for:: Atrial Fibrillation (SHORT BURST PAF) Chest Pain (ATYPICAL HOSP 07/23/13 MPS WNL) Heart Murmur (ECHO 06/2013) Irregular Heartbeat (HOSP 07/09-SHORT BURST PAF NOTED) Valvular Heart Disease (MILD MR,AR) Denies:: Congestive Heart Failure Hypertension Hx of Respiratory Problem?: Yes Respiratory History: Positive for:: Dyspnea (W/ ATYPICAL CHEST PAIN) Pneumonia (YEAR AGO) Denies:: Tuberculosis Use of C-PAP Machine Hx Neurologic Problems?: Yes Hx of GI Problems?: No Hx of Problems?: Yes Genitourinary History: Positive for:: Urinary Tract Infection (TC W/ CIPRO 2013) Female Hx: Denies:: Currently Skin History: Positive for:: History Skin Disorders? (S/P EXC SCALP TUMOR) Denies:: Pressure Ulcers Other Skin Pertinent History: ITCHING ALL OVER Hx Musculoskeletal Problems?: Yes Musculoskeletal History: Positive for:: Musculoskeletal Trauma (RECENT FALL IN SHOWER-C/OF RT KNEE PAIN & SWELLING) Hx of Psycho/Social Problems?: No Hx Surgeries?: No Hx Any Other Health Problems?: Yes Other History: Positive for:: Hospitalization (ATYPICAL CHEST PAIN 07/23/13) Denies:: Cancer Endocrine Disease History Blood Transfusions: Denies:: Blood Transfusions Hx Diabetes: NoBedside Blood Glucose: 109 Hx Alcohol Use: NoHx Substance Use: No Smoking Status: Never Smoker Have You Smoked inLast 12 mo: No Stop/Bang Treated for Sleep Apnea?: No Do You Have a CPAP Machine?: No S-Snoring: Do You Snore Loudly: No T-Tired: feel tired, fatigued: No O-Obsered: Observed not breath: No P-Blood Pressure: treated: No B- Body Mass Index > 35 kg/m2: No A- Age over 50: Yes N- Neck Large Circumference: No G- Gender Male: No SCOOTER Total Score: 0 Risk Assessment Category Category 1A: Patient has history of documented sleep apnea, and HAS NOT received any narcotic, sedative or anesthesia administration during this stay. Category 1B: Patient has history of documented sleep apnea, and HAS received any narcotic , sedative or anesthesia administration during this stay Category 2: Patient has SUSPECTED Obstructive Sleep Apnea, and HAS received any narcotic , sedative or anesthesia administration during this stay. Category 3: Patient has SUSPECTED Obstructive Sleep Apnea and HAS NOT received narcotic, sedative or anesthesia administration during this stay. Category 4: Outpatient in Procedural Areas with known sleep apnea or who screen positive for High Risk via the STOP/BANG questionnaire. Exam Exam Vital Signs Vital Signs Date Time Temp Pulse Resp B/P Pulse Ox O2 Delivery O2 Flow Rate FiO2 10/23/16 04:58 36.4 64 16 149/67 96 Room Air 10/23/16 00:51 36.8 64 18 154/66 94 Room Air General Appearance: Alert, Oriented X3, Cooperative, Mild Distress HEENT/AIRWAY: MP 3 Lungs: Normal Air Movement Heart: Other (IRIR, III/ systolic murmur loudest at apex) Meds/Labs/Diagnostics Bedside Blood Glucose: 109 Labs Test 10/20/16 18:54 10/21/16 10:35 10/21/16 20:03 10/22/16 05:30 Lactic Acid Level 1.2mmol/L (0.4-2.0) Magnesium Level 1.9mg/dL (1.6-2.6) Troponin T < 0.010ug/L (0.0-0.011) Lipase 33U/L (13-60) Urine Color Dark yellow (YELLOW) Urine Appearance Clear (CLEAR,HAZY) Urine pH 6.0 (5.0-8.0) Urine Specific [place] 1.018 (1.003-1.035) Urine Protein Negativemg/dL (NEG,TRACE) Urine Glucose (UA) Negativemg/dL (NEGATIVE) Urine Ketones Negativemg/dL (NEGATIVE) Urine Occult Blood Small (NEGATIVE) Urine Nitrite Positive (NEGATIVE) Urine Bilirubin Small (NEGATIVE) Urine Ictotest Positive (Negative) Urine Urobilinogen Normalmg/dL (NORMAL) Urine Leukocyte Esterase Trace (NEGATIVE) Urine RBC 3-10/hpf (0-2) Urine WBC 6-10/hpf (0-5) Urine Epithelial Cells Few/hpf (NONE-MOD) Urine Crystals None seen (NONE SEEN) Urine Bacteria Few/hpf (NONE-FEW) Urine Hyaline Casts None/lpf (NONE) Urine Granular Casts None seen (NONE SEEN) Urine Waxy Casts None seen (NONE SEEN) Urine Red Blood Cell Casts None seen (NONE SEEN) Urine White Blood Cell Casts None seen (NONE SEEN) Urine Mucus None seen (None Seen) Urine Trichomonas None seen (NONE SEEN) Urine Yeast None (NONE SEEN) Urinalysis Comment None Urine Culture Reflexed Indicated Prothrombin Time 10.9sec (8.1-12.5) Prothromb Time International Ratio 1.02ratio Total Bilirubin 1.0mg/dL (0.0-1.2) Aspartate Amino Transf (AST/SGOT) 110U/L (0-50) Alanine Aminotransferase (ALT/SGPT) 147U/L (0-32) Alkaline Phosphatase 152U/L (25-165) Total Protein 5.6g/dL (6.4-8.4) Albumin 3.1g/dL (3.4-5.0) Test 10/23/16 05:25 White Blood Count 6.8th/mm3 (3.8-10.1) Red Blood Count 4.05mil/mm3 (3.90-5.20) Hemoglobin 11.8g/dL (12.0-15.6) Hematocrit 36.7% (35.0-46.0) Mean Corpuscular Volume 91fL (81-100) Mean Corpuscular Hemoglobin 29.1pg (27.0-35.0) Mean Corpuscular Hemoglobin Concent 32.2% (32.0-37.0) Red Cell Distribution Width 15.0% (12.3-15.4) Platelet Count 236bil/L (150-400) Neutrophils (%) (Auto) 49.8% (40-74) Lymphocytes (%) (Auto) 34% (14-46) Monocytes (%) (Auto) 10.1% (4-12) Eosinophils (%) (Auto) 5.7% (0-5) Basophils (%) (Auto) 0.4% (0-3) Sodium Level 142mEq/L (134-144) Potassium Level 3.6mEq/L (3.5-5.2) Chloride Level 105mEq/L (97-108) Carbon Dioxide Level 25mmol/L (18-29) Blood Urea Nitrogen 5mg/dL (8-27) Creatinine 0.37mg/dL (0.57-1.00) Estimat Glomerular Filtration Rate 237mL/min (>59) Glucose Level 129mg/dL (60-99) Calcium Level 8.5mg/dL (8.5-10.1) Plan Impression Patient chart reviewed, patient interviewed and anesthestic plan with risks, benefits, and alternatives discussed, and informed consent obtained. NPO per Anesth. Guidelines: Yes ASA Physical Status: ASA3 Severe Disease Anesthetic Plan: GA Bene/Risks/Altern/Consents: Yes HP Complete Prior to Induction: Yes Shaka Gary MD Oct 23, 2016 07:07
[2016-10-23] MEDS ORDERED: fentaNYL-PF 50 mCg/mL 2 mL Inj ONE (07:38)
[2016-10-23] MEDS ORDERED: Rocuronium 10 mg/mL 5 mL Inj ONE (07:38)
[2016-10-23] MEDS ORDERED: Lactated Ringer's 1,000 ML IV ONE (07:38)
[2016-10-23] MEDS ORDERED: Neostigmine 1 mg/mL 5 mL Inj ONE (07:38)
[2016-10-23] MEDS ORDERED: Ondansetron 2 mg/mL 2 mL Inj ONE (07:38)
[2016-10-23] MEDS ORDERED: Propofol 10 mg/mL 20 mL Inj ONE (07:38)
[2016-10-23] MEDS ORDERED: Glycopyrrolate 0.2 mg/mL 5 mL Inj ONE (07:38)
[2016-10-23] MEDS ORDERED: Dexamethasone 4 mg/mL Inj ONE (07:38)
[2016-10-23] MEDS ORDERED: MeTOProlol 1 mg/mL 5 mL Inj ONE (07:38)
[2016-10-23 07:46] LABS: Bilirubin, Direct 0.2 mg/dL (0.0-0.3)
[2016-10-23] MEDS ORDERED: Bupivacaine-MPF 0.5% 30 mL Inj INFILTRATE ONE (08:18)
[2016-10-23] MEDS ORDERED: Lactated Ringer's 500 ML IV PRN (08:42)
[2016-10-23] MEDS ORDERED: Lactated Ringer's 1,000 ML IV SCH (08:42)
--- NOTE | 2016-10-23 08:43 | PCM.PNMED ---
Subjective Date of Service Oct 23, 2016 Subjective Patient seen and examined. No complaints, vitals noted Exam Vital Signs Vital Sign - Last Date Time Temp Pulse Resp B/P Pulse Ox O2 Delivery O2 Flow Rate FiO2 10/23/16 04:58 36.4 64 16 149/67 96 Room Air Intake and Output 10/22/16 10/22/16 10/23/16 Cumulative From/Thru 15:00 23:00 07:00 10/20/16 20:27 - 10/23/16 05:57 Intake Total 797 ml 268 ml 3170 ml Output Total 1900 ml 450 ml 2350 ml Balance -1103 ml -182 ml 820 ml Intake Oral 0 ml 268 ml 268 ml IV Total 797 ml 2902 ml Output Urine Total 1900 ml 450 ml 2350 ml # Bowel Movements 0 0 Exam General: Elderly female in no acute distress, well-developed, well- nourished, appropriately interactive Cardiovascular: Regular rate and rhythm with no murmurs, rubs, or gallops appreciated Pulmonary: Clear to auscultation bilaterally with no crackles, wheezes, or rhonchi. Normal respiratory effort with no use of accessory muscles. Abdomen: Bowel tones present. Soft, nondistended, tenderness in the RUQ without guarding or rebound. No hepatosplenomegaly or masses appreciated. Extremities: No clubbing, cyanosis, edema, or lymphadenopathy appreciated. Skin: Normal temperature, turgor, and texture; no rash, ulcers, or subcutaneous nodules appreciated. Lab and Diagnostics Result Diagram: 10/23/16 0525 10/23/16 0525 Microbiology Blood cultures, pending X-Rays, CTs and MRIs Abdominal ultrasound, 10/20/2016 IMPRESSION: Sludge in the gallbladder. Common bile duct just above normal limits measuring 7 mm. In the proper clinical setting, nonemergent MRI/MRCP can be done for further evaluation. Transmitted to the ED at 23:14 by Jordi Jimenez M.D. Chest x-ray 10/20/2016 IMPRESSION: Acute disease is not seen an upright portable chest. Dictated by: Gianni Mccormick M.D. on 10/20/2016 at 19:28 Approved by: Gianni Mccormick M.D. on 10/20/2016 at 19:29 12-lead ECG ECG Interpretation: Sinus rhythm with a rate of [address] depression in V4V5 Inverted t-waves, which is unchanged from old Time: 19:08 Interpreted by: ED physician Assessment & Plan Ms. Ny is an 86-year-old female with a past medical history significant for atrial fibrillation who presented to the ED with extreme right upper quadrant abdominal pain that started yesterday 10/19/2016. She has been unable to eat anything for about 24 hours. Right upper quadrant abdominal pain, present on admission. Acute. Ongoing. - Patient has RUQ abdominal pain, worse with eating with elevated LFTs (AST 372 , ALT 189, total bili 2.2) at admission, LFTs and bili trended down - Dr. Rock of Gastroenterology consulted, based on the lab results, plan is to get surgery on board for possible cholecystectomy, - Continue ceftriaxone 2 g daily and metronidazole 500 mg daily h/o bronchiti not active - patient not sure if she has, has not received steroids inpatient so far - she was in ER in 2016, was prescribed prednisone then - CXR clear, no signs of COPD History of atrial fibrillation as per admission - Patient in NSR - Monitor on telemetry, has been sinus since admission - patient has not taken any meds in last 2 years. PRN Medications - Acetaminophen as needed for mild pain/fever/headache - Bowel regimen as needed - Antiemetic as needed - Subcutaneous heparin on board. SCDs in place. Patient status: Patient is admitted under inpatient status with expected length of stay greater than 2 midnights due to severity of presenting symptoms, risk of adverse event, and complexity of treatment plan. VTE Prophylaxis: Sub-Q Heparin (Unfractionated) VTE Mechanical Devices: Intermittant Pneumatic CD Resuscitation Status: CPR: Attempt Resuscitation Time spent 35 MINS Prashant Thurston MD Oct 23, 2016 08:43
[2016-10-23] MEDS ORDERED: HYDROmorphone 1 mg/mL Inj IVPUSH PRN (08:45)
[2016-10-23] MEDS ORDERED: Dexamethasone 4 mg/mL Inj IVPUSH PRN (08:45)
[2016-10-23] MEDS ORDERED: Phenylephrine 10,000 mCg/mL Inj IVPUSH PRN (08:45)
[2016-10-23] MEDS ORDERED: EPHEDrine Sulfate 50 mg/mL Inj IVPUSH PRN (08:45)
[2016-10-23] MEDS ORDERED: Ondansetron 2 mg/mL 2 mL Inj IVPUSH PRN ×2 (08:45→09:05)
[2016-10-23] MEDS ORDERED: Labetalol 5 mg/mL 20 mL Inj IV PRN ×2 (08:45→17:30)
[2016-10-23] MEDS ORDERED: MetoCLOpramide 5 mg/mL 2 mL Inj IVPUSH PRN (09:05)
[2016-10-23] MEDS: fentaNYL-PF 50 mCg/mL 2 mL Inj IVPUSH PRN ×3 (09:36→09:56)
--- NOTE | 2016-10-23 09:39 | OP ---
[address] [address] OPERATIVE REPORT PATIENT: JEIMY PRIEST : 1930 MR#: [id number] ADMIT: 10/21/2016 JOB ID: [id number] DATE OF SURGERY: 10/23/2016 SURGEON: Gabriel Gomes MD PREOPERATIVE DIAGNOSIS(ES): Acute cholecystitis. POSTOPERATIVE DIAGNOSIS(ES): Acute cholecystitis. PROCEDURE: Laparoscopic cholecystectomy with cholangiogram. INDICATIONS: An 86-year-old female with signs and symptoms consistent with acute cholecystitis and symptomatic gallstones per previous notes. I met her in the preoperative area and with the benefit of a speech/language therapist reviewed plans for laparoscopic cholecystectomy cholangiogram with her. She would like to proceed today with me as her surgeon despite the fact that family members are not available. FINDINGS: 1. A surgical dressing maker was required for the camera operation and retraction. 2. The patient had mild acute cholecystitis. 3. The patient had an intraoperative cholangiogram that was essentially normal with a long cystic duct, low bifurcation, but more or less normal intrahepatic anatomy without filling defects. She had a relatively large duct and a small , but no sign of meniscus or stone and the duodenum filled easily with a little bit of patience. PROCEDURE: The patient brought to the operating room. General anesthetic was administered. SCOAP protocol was followed. Surgical time-out was performed. We discussed beta blockade, the fact that she was on therapeutic antibiotics, possible need for perioperative stress dose steroids, though we felt there was a low likelihood of this being required. Abdomen had been prepped and draped in sterile fashion. We began with a Veress needle, obtained pneumoperitoneum and placed four ports. Gallbladder had mild inflammation, but infundibulum was thickened. We retracted gallbladder cephalad, dissected out the triangle of Calot. We spilled some bile, but no spilled stones. Identified where the cystic duct entered the gallbladder. Cystic artery was divided. We placed a clip on the gallbladder side, and obtained a cholangiogram with findings as described above. We now removed our cholangiocatheter and placed two clips across the patient side of the cystic duct and divided the cystic duct. We then dissected the gallbladder out of the liver bed. There was no spillage of stones. We did get into the liver bed in the mid gallbladder and this was controlled with cautery and later had a piece of Surgicel placed over. The gallbladder was removed through the subxiphoid port in a bag to avoid wound contamination. The patient had small stones and gravel. Specimen was sent to pathology. We now irrigated out the right upper quadrant, obtained hemostasis, placed our Surgicel. Suctioned out all of our irrigation which was not clear at this point, and removed our ports under laparoscopic vision. The wounds were closed with absorbable suture including 0-Vicryl at the fascial level the subxiphoid 11 mm port. The patient tolerated the procedure well. At the time of this dictation is awakened from anesthesia.
--- NOTE | 2016-10-23 10:38 | DRSVH ---
PROCEDURE: X-RAY OPERATIVE CHOLANGIOGRAM ([id number]) INDICATIONS: CHOLELITHIASIS COMPARISON: [facility], MR, MR ABD MRCP, 10/21/2016, 13:39. [facility], US, ABDOMEN LTD, 10/20/2016, 22:14. FINDINGS: Biliary ducts: The surgeon injected contrast into the biliary ducts after cannulation of the cystic duct stump. Visualized intra- and extrahepatic bile ducts are normal in caliber, without strictures. Several small intraluminal filling defects which may represent gas bubbles. No evidence for iatrog enic ductal injury. Duodenum: Contrast flows promptly through the sphincter of Oddi into the duodenum, which appears nor mal in caliber. IMPRESSION: Prominence of the extrahepatic bile duct as was seen on prior examination and there are s everal intraluminal filling defects which may represent gas bubbles. Correlate real-time examination . Dictated by: Michael SHEPPARD Interpreted: Ketan Stockton MD on 10/23/2016 at 9:37 Approved by: Fabio Stockton M.D. on 10/23/2016 at 10:37
[2016-10-23] MEDS: HYDROmorphone 1 mg/mL Inj IVPUSH PRN ×2 (10:42→20:13)
--- NOTE | 2016-10-23 10:48 | PCM.ANEP1 ---
Post Anesthesia PACU Phase 1 Assessment Vital Signs Vital Signs Date Time Temp Pulse Resp B/P Pulse Ox O2 Delivery O2 Flow Rate FiO2 10/23/16 10:33 36.7 58 18 168/73 95 Room Air 10/23/16 10:28 65 10/23/16 09:55 59 14 170/63 95 Nasal Cannula 2 10/23/16 09:45 60 12 174/73 95 Nasal Cannula 2 10/23/16 09:30 60 14 170/78 96 Nasal Cannula 2 10/23/16 09:25 36.0 59 19 174/71 99 Simple Mask 10 10/23/16 04:58 36.4 64 16 149/67 96 Room Air Level of Alertness: Sleepy, easy to arouse Pain: Yes (rn aware) Pain Scale Score: 9 Nausea or Vomiting: No CV Function & Hydration Stable: Yes Airway Device: None Lungs: Normal Air Movement PACU Phase 2 Assessment Complications: No Follow up Care: N/A Patient Instructions Provided: N/A Shaka Gary MD Oct 23, 2016 10:48
--- NOTE | 2016-10-23 11:43 | PCM.PNMED ---
Subjective Date of Service Oct 23, 2016 Subjective GASTROENTEROLOGY PROGRESS NOTE: Attending Physician: Kalpana Parks MD Resident Physician: Negrita Valdez DO No acute events overnight. Patient is status post laparoscopic cholecystectomy with cholangiogram this morning and resting comfortably post-op. Patient seen several hours after surgery and appears in pain. She is groaning, restless and unable to find a comfortable position. Family is at the bedside and able to translate. Patient reports RUQ abdominal pain, blurry vision and nausea. Exam Vital Signs Vital Sign - Last Date Time Temp Pulse Resp B/P Pulse Ox O2 Delivery O2 Flow Rate FiO2 10/23/16 09:45 60 12 174/73 95 Nasal Cannula 2 10/23/16 09:25 36.0 Intake and Output 10/22/16 10/22/16 10/23/16 Cumulative From/Thru 15:00 23:00 07:00 10/20/16 20:27 - 10/23/16 05:57 Intake Total 797 ml 268 ml 3170 ml Output Total 1900 ml 450 ml 2350 ml Balance -1103 ml -182 ml 820 ml Intake Oral 0 ml 268 ml 268 ml IV Total 797 ml 2902 ml Output Urine Total 1900 ml 450 ml 2350 ml # Bowel Movements 0 0 Exam General: Elderly woman in mild distress related to pain. Restless and unable to find comfortable position. Lungs: Clear to auscultation bilaterally with no crackles, wheezes, or rhonchi. Cardiovascular: Regular rate/rhythm. No murmurs/rubs/gallops Abdomen: Dressings clean, dry and intact. Soft, nondistended and understandably tender post-op. Minimal bowel tones. Extremities: No edema or cyanosis. Skin: Warm and dry. No obvious rashes or ulcerations Neurological: Difficult to asses due to patient condition but appears alert and oriented x3. Grossly neurologically intact. IVs and Medications Medications Reviewed: Medications were reviewed in detail Lab and Diagnostics Laboratory Tests Test 10/23/16 05:25 White Blood Count 6.8th/mm3 (3.8-10.1) Red Blood Count 4.05mil/mm3 (3.90-5.20) Hemoglobin 11.8g/dL (12.0-15.6) Hematocrit 36.7% (35.0-46.0) Mean Corpuscular Volume 91fL (81-100) Mean Corpuscular Hemoglobin 29.1pg (27.0-35.0) Mean Corpuscular Hemoglobin Concent 32.2% (32.0-37.0) Red Cell Distribution Width 15.0% (12.3-15.4) Platelet Count 236bil/L (150-400) Neutrophils (%) (Auto) 49.8% (40-74) Lymphocytes (%) (Auto) 34% (14-46) Monocytes (%) (Auto) 10.1% (4-12) Eosinophils (%) (Auto) 5.7% (0-5) Basophils (%) (Auto) 0.4% (0-3) Sodium Level 142mEq/L (134-144) Potassium Level 3.6mEq/L (3.5-5.2) Chloride Level 105mEq/L (97-108) Carbon Dioxide Level 25mmol/L (18-29) Blood Urea Nitrogen 5mg/dL (8-27) Creatinine 0.37mg/dL (0.57-1.00) Estimat Glomerular Filtration Rate 237mL/min (>59) Glucose Level 129mg/dL (60-99) Calcium Level 8.5mg/dL (8.5-10.1) Total Bilirubin 0.4mg/dL (0.0-1.2) Direct Bilirubin 0.2mg/dL (0.0-0.3) Aspartate Amino Transf (AST/SGOT) 51U/L (0-50) Alanine Aminotransferase (ALT/SGPT) 99U/L (0-32) Alkaline Phosphatase 146U/L (25-165) Total Protein 5.8g/dL (6.4-8.4) Albumin 3.1g/dL (3.4-5.0) Microbiology 10/20/16 Blood Culture - No growth at 2 days 10/21/16 Urine Culture - Mixed Urogenital Rosi Result Diagram: 10/23/16 0525 10/23/16 0525 Microbiology Blood cultures, pending X-Rays, CTs and MRIs 10/20/16 - X-RAY CHEST ONE VIEW, PORTABLE IMPRESSION: Acute disease is not seen an upright portable chest. Approved by: Gianni Mccormick M.D. on 10/20/2016 at 19:29 10/21/16 - US ABDOMEN, LIMITED IMPRESSION: Cholelithiasis. Prominent common bile duct. Please correlate with serum bilirubin. If clinical symptoms persist or clinical suspicion for pathology is high, MRCP is suggested for further evaluation. Approved by: Marvin Rodriguez M.D. on 10/21/2016 at 12:05 10/21/16 - MR ABDOMEN MRCP IMPRESSION: Essentially nondiagnostic examination due to uncontrollable motion artifact. Dilated extrahepatic bile ducts are again noted however intraluminal filling defects (while not discretely visualized) cannot be excluded due to motion degraded images. Approved by: Epifanio Del Real M.D. on 10/21/2016 at 15:21 . Assessment & Plan 86-year-old woman with a history of atrial fibrillation who presented to the emergency department with an episode of right upper quadrant pain the day prior to admission. Cholelithiasis s/p laparoscopic cholecystectomy - Patient presented with acute onset of epigastric pain and cholestatic liver function tests as well as a dilated bile duct on imaging. LFTs trended down and clinically appears as though the patient may have passed a common bile duct stone. - General surgery consulted and patient underwent laparoscopic cholecystectomy this morning (10/23). - Continue ceftriaxone 2 g daily and metronidazole 500 mg daily - Postoperative care per General Surgery - GI remains available if needed. Additional problems managed by primary medicine team: -History of atrial fibrillation as per admission -History of bronchitis without diagnosis of COPD . VTE Prophylaxis: Sub-Q Heparin (Unfractionated) VTE Mechanical Devices: Intermittant Pneumatic CD Resuscitation Status: CPR: Attempt Resuscitation Attending Statement pt seen and examined spoke with granddaughter at bedside c/o of pain at incision sites continue to follow LFT's IOC with evidence of CBD stones Negrita Valdez DO Oct 23, 2016 09:53 Kalpana Parks MD Oct 28, 2016 18:17
[2016-10-23] MEDS: Ondansetron 2 mg/mL 2 mL Inj IVPUSH PRN (20:34)
[2016-10-23] MEDS: metroNIDAZOLE Inj 500 MG in IV Premix 1 EACH IV SCH (20:35)
[2016-10-23] MEDS: HYDROcodone-APAP 5-325 mg Tablet PO PRN (21:45)
[2016-10-23] MEDS: Senna-Docusate 8.6-50 mg Tablet PO SCH (21:45)
[2016-10-23] MEDS: diphenhydrAMINE-Zinc 2%-0.1% 30 Gm Cream TOPICAL PRN (22:39)
[2016-10-23] MEDS ORDERED: cefTRIAXone Inj 2,000 MG in Dextrose 5% Minibag Plus 50 ML IV SCH (23:00)
[2016-10-24] VITALS (8 sets, daily range): BP systolic 117–170; BP diastolic 66–80; PULSE 68–83; RESP 16–20; O2SAT 93–96
[2016-10-24] MEDS: Heparin 5,000 Unit/mL Inj SUBQ SCH ×3 (00:35→16:52)
[2016-10-24] MEDS: HYDROcodone-APAP 5-325 mg Tablet PO PRN ×4 (03:21→23:44)
[2016-10-24 06:34] LABS: BASOPHILS % (AUTO) 0 % (0-3); EOSINOPHILS % (AUTO) 0 % (0-5); MONOCYTES % (AUTO) 8.7 % (4-12); Mean Corpuscular Hemoglobin 29.4 pg (27.0-35.0); Mean Corpuscular Volume 89.9 fL (81-100); NEUTROPHILS % (AUTO) 79.7 % (40-74); Platelet Count 223 bil/L (150-400)
[2016-10-24] MEDS: Senna-Docusate 8.6-50 mg Tablet PO SCH ×2 (08:51→20:30)
[2016-10-24] MEDS: metroNIDAZOLE Inj 500 MG in IV Premix 1 EACH IV SCH (08:52)
--- NOTE | 2016-10-24 11:21 | PCM.PNMED ---
Subjective Date of Service Oct 24, 2016 Subjective Patient seen and examined. Translated by granddaughter bedside. She complains of abdominal pain. Vitals stable. Exam Vital Signs Vital Sign - Last Date Time Temp Pulse Resp B/P Pulse Ox O2 Delivery O2 Flow Rate FiO2 10/24/16 11:05 77 10/24/16 09:13 36.9 17 155/66 94 Room Air 10/23/16 09:55 2 Intake and Output 10/23/16 10/23/16 10/24/16 Cumulative From/Thru 15:00 23:00 07:00 10/20/16 20:27 - 10/24/16 06:14 Intake Total 600 ml 120 ml 459 ml 5149 ml Output Total 500 ml 675 ml 3525 ml Balance 600 ml -380 ml -216 ml 1624 ml Intake Oral 120 ml 100 ml 488 ml IV Total 600 ml 359 ml 4661 ml Output Urine Total 500 ml 675 ml 3525 ml # Bowel Movements 0 0 0 Exam General: Elderly female in no acute distress, well-developed, well- nourished, appropriately interactive Cardiovascular: Regular rate and rhythm with no murmurs, rubs, or gallops appreciated Pulmonary: Clear to auscultation bilaterally with no crackles, wheezes, or rhonchi. Normal respiratory effort with no use of accessory muscles. Abdomen: Bowel tones absent, not distended. Scars from lap, no signs of erythema or infection Extremities: No clubbing, cyanosis, edema, or lymphadenopathy appreciated. Skin: Normal temperature, turgor, and texture; no rash, ulcers, or subcutaneous nodules appreciated. Lab and Diagnostics Result Diagram: 10/24/1630 10/24/1630 Microbiology Blood cultures, pending X-Rays, CTs and MRIs 10/20/16 - X-RAY CHEST ONE VIEW, PORTABLE IMPRESSION: Acute disease is not seen an upright portable chest. Approved by: Gianni Mccormick M.D. on 10/20/2016 at 19:29 10/21/16 - US ABDOMEN, LIMITED IMPRESSION: Cholelithiasis. Prominent common bile duct. Please correlate with serum bilirubin. If clinical symptoms persist or clinical suspicion for pathology is high, MRCP is suggested for further evaluation. Approved by: Marvin Rodriguez M.D. on 10/21/2016 at 12:05 10/21/16 - MR ABDOMEN MRCP IMPRESSION: Essentially nondiagnostic examination due to uncontrollable motion artifact. Dilated extrahepatic bile ducts are again noted however intraluminal filling defects (while not discretely visualized) cannot be excluded due to motion degraded images. Approved by: Epifanio Del Real M.D. on 10/21/2016 at 15:21 . 12-lead ECG ECG Interpretation: Sinus rhythm with a rate of [address] depression in V4V5 Inverted t-waves, which is unchanged from old Time: 19:08 Interpreted by: ED physician Assessment & Plan Ms. Ny is an 86-year-old female with a past medical history significant for atrial fibrillation who presented to the ED with extreme right upper quadrant abdominal pain that started yesterday 10/19/2016. She has been unable to eat anything for about 24 hours. Cholecystiti s/p cholecystectomy, present on admission. Acute. Ongoing. - Patient had RUQ abdominal pain, worse with eating with elevated LFTs (AST 372 , ALT 189, total bili 2.2) at admission, LFTs and bili trended down - S/p cholecystectomy, incisions are clean. BS absent likely illeus due to surgery. Tolerating oral liquids, advance as tolerated - pain control - elevated wbcs noted continue abx - Continue ceftriaxone 2 g daily and metronidazole 500 mg daily - Surgery on board h/o bronchitis not active - patient not sure if she has, has not received steroids inpatient so far - she was in ER in 2016, was prescribed prednisone then - CXR clear, no signs of COPD History of atrial fibrillation as per admission - Patient in NSR - Monitor on telemetry, has been sinus since admission - patient has not taken any meds in last 2 years. PRN Medications - Acetaminophen as needed for mild pain/fever/headache - Bowel regimen as needed - Antiemetic as needed - Subcutaneous heparin on board. SCDs in place. . VTE Prophylaxis: Sub-Q Heparin (Unfractionated) VTE Mechanical Devices: Intermittant Pneumatic CD Resuscitation Status: CPR: Attempt Resuscitation Time spent 35 mins Prashant Thurston MD Oct 24, 2016 11:21
--- NOTE | 2016-10-24 14:12 | PROG NOTE ---
[address] [address] PROGRESS NOTE PATIENT: JEIMY PRIEST : 1930 MR#: [id number] ADMIT: 10/21/2016 JOB ID: [id number] DATE: 10/24/2016 SUBJECTIVE: Postop day one laparoscopic cholecystectomy with cholangiogram. She has had persistent incisional pain since surgery but is able to get up and move about. OBJECTIVE: She has been afebrile, pulses in the 60s to 80s, blood pressure has been within normal limits. Room air saturation remained stable at 93% to 95%. On examination, her abdomen is soft, nontender away from the incisions. Labs show a white count is down to 16.4, platelet count remains at 223, hematocrit is stable at 36.4. Chemistries are relatively unremarkable with liver function tests normal except for the ALT, which is continuing to drop. IMPRESSION AND PLAN: Doing well postoperatively except for incisional pain. I think her white count may be elevated due to stress reaction postoperatively. We did visualize the pancreatic duct on her cholangiogram yesterday, and I will add a lipase to her labs today. I will order a followup CBC and LFT and lipase for tomorrow. I think that her postop pain falls within the spectrum of normal postoperative reaction, and I would not pursue any further imaging today.
[2016-10-24] MEDS: HYDROmorphone 1 mg/mL Inj IVPUSH PRN ×2 (14:58→20:27)
[2016-10-24] MEDS: Ondansetron 2 mg/mL 2 mL Inj IVPUSH PRN (20:26)
[2016-10-24] MEDS: Dextrose 5% 0.9% NaCl 1,000 ML IV SCH (21:31)
[2016-10-24] MEDS: diphenhydrAMINE-Zinc 2%-0.1% 30 Gm Cream TOPICAL PRN (23:37)
[2016-10-25] VITALS (9 sets, daily range): BP systolic 123–156; BP diastolic 58–86; PULSE 78–105; RESP 16–20; O2SAT 90–96
[2016-10-25] MEDS: Heparin 5,000 Unit/mL Inj SUBQ SCH ×3 (00:24→17:59)
[2016-10-25] MEDS: HYDROmorphone 1 mg/mL Inj IVPUSH PRN ×5 (00:35→23:23)
[2016-10-25] MEDS: HYDROcodone-APAP 5-325 mg Tablet PO PRN ×3 (06:18→21:15)
[2016-10-25 06:36] LABS: BASOPHILS % (AUTO) 0.1 % (0-3); EOSINOPHILS % (AUTO) 1.1 % (0-5); MONOCYTES % (AUTO) 9.6 % (4-12); Mean Corpuscular Hemoglobin 29.2 pg (27.0-35.0); Mean Corpuscular Volume 91.1 fL (81-100); NEUTROPHILS % (AUTO) 69.4 % (40-74); Platelet Count 212 bil/L (150-400)
[2016-10-25] MEDS: Senna-Docusate 8.6-50 mg Tablet PO SCH ×2 (09:01→21:00)
--- NOTE | 2016-10-25 11:00 | PCM.PNSURG ---
Subjective Date of Service: Oct 25, 2016 Date of Service: Oct 25, 2016 Visit Information: Reason for Visit Hepatitis Surgery/Surgery Date lap barney w/cholangiogram 10/23/16 Post-Op Day # 2 Status post laparoscopic cholecystectomy with cholangiogram and suspected bile leak Date of Admission: Oct 21, 2016 at 01:19 Hospital Day # Subjective: Patient seen with overhead foreman reporting improved right upper quadrant pain after surgery but now complains of moderate-severe substernal epigastric pain with drinking fluids & occasional dizziness with standing. She has not had a bowel movement but is passing flatness and tolerating a normal diet without nausea or vomiting. Postop General: No Chest Pain Gastrointestinal: Good Appetite, No N/V, Passing Flatus Pain Management: Good Pain Control Postop Activity: Ambulate with Assist Objective Vital Sign- Last 8 Hours Date Time Temp Pulse Resp B/P Pulse Ox O2 Delivery O2 Flow Rate FiO2 10/25/16 10:42 135/58 10/25/16 10:36 123/69 10/25/16 10:31 124/61 10/25/16 07:58 36.5 93 18 151/70 95 Nasal Cannula 1.00 10/25/16 04:20 38.0 78 18 127/67 95 Nasal Cannula 1.00 Intake and Output- Last 8 Hour 10/25/16 Cumulative From/Thru 07:00 10/20/16 20:27 - 10/25/16 05:36 Intake Total 898 ml 6720 ml Output Total 700 ml 4225 ml Balance 198 ml 2495 ml Intake Oral 300 ml 788 ml IV Total 598 ml 5932 ml Output Urine Total 700 ml 4225 ml # Bowel Movements 0 General: Alert, Cooperative, No Acute Distress Lungs: Clear to Auscultation Heart: Exam Unremarkable Abdomen: Appropriately tender, Non-distended SURGICAL WOUND : Wound General Appearence: Steri Strips, Intact, Well Approximated, No Erythema, No Discharge, No Inflammatory Changes Dressing & Drainage Status: Intact Extremities: Thigh&Calf Soft/Nontender Neuro: Normal Speech Result Diagram: 10/25/16 0559 10/25/16 0559 Lab & Micro Results: ALT = 65 H Assessment & Plan Impression Primary Diagnoses: 1. Acute cholecystitis 2. Status post laparoscopic cholecystectomy with cholangiogram: Suspected bile leak. Other Medical History: Obesity Cataracts Valvular heart disease Glaucoma Atrial fibrillation Urinary tract infections Problems: Plan 1. Appreciate GI input for epigastric pain 2. Medical care per Attending Hospitalist 3. HIDA scan to rule out bile leak 4. RN orthostatic BPs 5. Pain management when necessary 6. Physical therapy consult VTE Prophylaxis: Sub-Q Heparin (Unfractionated), SCDs Resuscitation Status: CPR: Attempt Resuscitation Moe Huerta PA-C Oct 25, 2016 11:00
--- NOTE | 2016-10-25 13:53 | DRSVH ---
PROCEDURE: NM HIDA SCAN BILE LEAK RADIOPHARMACEUTICAL: 4.6 mCi Tc-99m mebrofenin IV. INDICATIONS: Abdominal pain after cholecystectomy. Evaluate for bile leak. TECHNIQUE: Following intravenous administration of Tc-99m mebrofenin, sequential anterior abdominal images were obtained through at least 60 minutes. COMPARISON: [facility], MR, MR ABD MRCP, 10/21/2016, 13:39. [facility], CR, XR CHOLANGIOGRAM OPERATIVE, 10/23/2016, 8:36. FINDINGS: There is normal tracer uptake and excretion by the liver. There is normal visualization o f intrahepatic ducts and common bile duct, and normal tracer excretion into duodenum. There is progr essive accumulation of tracer along the inferior margin of liver. IMPRESSION: Progressive accumulation of tracer along the inferior margin of liver, compatible with bi le leak. Dictated by: Marvin Rodriguez M.D. on 10/25/2016 at 13:44 Approved by: Marvin Rodriguez M.D. on 10/25/2016 at 13:51
[2016-10-25] MEDS: metroNIDAZOLE Inj 500 MG in IV Premix 1 EACH IV SCH (14:57)
[2016-10-25] MEDS: Dextrose 5% 0.9% NaCl 1,000 ML IV SCH ×2 (15:00→22:40)
[2016-10-25] MEDS: cefTRIAXone Inj 2,000 MG in Dextrose 5% Minibag Plus 50 ML IV SCH (16:25)
--- NOTE | 2016-10-25 16:39 | PCM.PNMED ---
Subjective Date of Service Oct 25, 2016 Subjective Patient is in the bed, complaining of epigastric abdominal pain, 5 out of 10, needs a BMP opioids. Gen. surgery and gastroenterology following. Exam Vital Signs Vital Sign - Last Date Time Temp Pulse Resp B/P Pulse Ox O2 Delivery O2 Flow Rate FiO2 10/25/16 13:31 36.7 105 18 129/68 Nasal Cannula 1.00 10/25/16 07:58 95 Intake and Output 10/24/16 10/24/16 10/25/16 Cumulative From/Thru 15:00 23:00 07:00 10/20/16 20:27 - 10/25/16 05:36 Intake Total 673 ml 898 ml 6720 ml Output Total 700 ml 4225 ml Balance 673 ml 198 ml 2495 ml Intake Oral 300 ml 788 ml IV Total 673 ml 598 ml 5932 ml Output Urine Total 700 ml 4225 ml # Bowel Movements 0 Exam PHYSICAL EXAM: GENERAL: Alert, not in distress, cooperative HEAD: atraumatic, normocephalic, no bruises. EYES: LAURA, EOMI, anicteric, able to fully open and close eyelids SKIN: Skin color normal, turgor normal. No visible rashes. EAR, NOSE, MOUTH, THROAT: Lips, oral mucosa, tongue gums, oropharynx are moist , pink, no lesions. Ears normal appearance, no lesions. NECK: supple ROM normal. RESPIRATORY: Lungs clear to auscultation. Good diaphragmatic excursion. . CARDIAC: normal S1 and S2; no rubs, murmurs, or gallops; regular rate and rhythm ABDOMEN: Abdomen soft, tender. BS normal. No masses or organomegaly. MUSCULOSKELETAL: ROM full, muscles are not tender EXTREMITIES: no pitting edema in LE, no new deformities or skin discoloration. NEURO: Alert, oriented X 3, Sensation grossly intact., Cranial nerves II-XII intact, Grossly normal motor function. PULSES: 2+ radial, 2+ carotid REVIEW OF SYSTEMS: GENERAL: no malaise, no fevers., SEE HPI HEENT: Negative for frequent or significant headaches All other reviewed and negative other than HPI. IVs and Medications Medications Reviewed: Medications were reviewed in detail Lab and Diagnostics Result Diagram: 10/25/16 0559 10/25/16 0559 Microbiology Blood cultures, pending X-Rays, CTs and MRIs 10/20/16 - X-RAY CHEST ONE VIEW, PORTABLE IMPRESSION: Acute disease is not seen an upright portable chest. Approved by: Gianni Mccormick M.D. on 10/20/2016 at 19:29 10/21/16 - US ABDOMEN, LIMITED IMPRESSION: Cholelithiasis. Prominent common bile duct. Please correlate with serum bilirubin. If clinical symptoms persist or clinical suspicion for pathology is high, MRCP is suggested for further evaluation. Approved by: Marvin Rodriguez M.D. on 10/21/2016 at 12:05 10/21/16 - MR ABDOMEN MRCP IMPRESSION: Essentially nondiagnostic examination due to uncontrollable motion artifact. Dilated extrahepatic bile ducts are again noted however intraluminal filling defects (while not discretely visualized) cannot be excluded due to motion degraded images. Approved by: Epifanio Del Real M.D. on 10/21/2016 at 15:21 . 12-lead ECG ECG Interpretation: Sinus rhythm with a rate of [address] depression in V4V5 Inverted t-waves, which is unchanged from old Time: 19:08 Interpreted by: ED physician Assessment & Plan Ms. Ny is an 86-year-old female with a past medical history significant for atrial fibrillation who presented to the ED with extreme right upper quadrant abdominal pain that started yesterday 10/19/2016. She has been unable to eat anything for about 24 hours. Cholecystiti s/p cholecystectomy. Illeus - stable - Surgery on board Plan - pain control - GI consulted - Continue antibiotics Paroxysmal atrial fibrillation - stable - Monitor on telemetry - patient has not taken any meds in last 2 years. Plan - start Metoprolol, ASA Anemia of chronic disease - Stable - Monitor PRN Medications - Acetaminophen as needed for mild pain/fever/headache - Bowel regimen as needed - Antiemetic as needed - Subcutaneous heparin on board. SCDs in place. . VTE Prophylaxis: Sub-Q Heparin (Unfractionated) VTE Mechanical Devices: Intermittant Pneumatic CD Resuscitation Status: CPR: Attempt Resuscitation VTE Prophylaxis: Sub-Q Heparin (Unfractionated), SCDs VTE Mechanical Devices: Intermittant Pneumatic CD Resuscitation Status: CPR: Attempt Resuscitation Joey Browne MD Oct 25, 2016 16:39
--- NOTE | 2016-10-25 17:42 | PCM.PNMED ---
Subjective Date of Service Oct 25, 2016 Subjective GASTROENTEROLOGY PROGRESS NOTE: Attending Physician: Kalpana Parks MD Resident Physician: Negrita Valdez DO No acute events overnight. Postoperative day #2 from laparoscopic cholecystectomy now with increasing epigastric pain and difficulty swallowing liquids. Exam Vital Signs Vital Sign - Last Date Time Temp Pulse Resp B/P Pulse Ox O2 Delivery O2 Flow Rate FiO2 10/25/16 11:01 98 10/25/16 10:42 135/58 10/25/16 07:58 36.5 18 95 Nasal Cannula 1.00 Intake and Output 10/24/16 10/24/16 10/25/16 Cumulative From/Thru 15:00 23:00 07:00 10/20/16 20:27 - 10/25/16 05:36 Intake Total 673 ml 898 ml 6720 ml Output Total 700 ml 4225 ml Balance 673 ml 198 ml 2495 ml Intake Oral 300 ml 788 ml IV Total 673 ml 598 ml 5932 ml Output Urine Total 700 ml 4225 ml # Bowel Movements 0 Exam General: Elderly, woman. Appears uncomfortable but in no acute. Lungs: Clear to auscultation without crackles, rhonchi or wheezes Cardiovascular: Regular rate and rhythm. No murmurs Abdomen: Soft, nondistended, diffusely tender to palpation, catalina epigastric area. Hypoactive bowel tones. Extremities: No edema or cyanosis. Skin: Warm and dry. No obvious rashes or ulcerations Neurological: Alert and oriented x3. Grossly neurologically intact. IVs and Medications Medications Reviewed: Medications were reviewed in detail Lab and Diagnostics Laboratory Tests Test 10/25/16 05:59 White Blood Count 14.0th/mm3 (3.8-10.1) Red Blood Count 3.84mil/mm3 (3.90-5.20) Hemoglobin 11.2g/dL (12.0-15.6) Hematocrit 35.0% (35.0-46.0) Mean Corpuscular Volume 91.1fL (81-100) Mean Corpuscular Hemoglobin 29.2pg (27.0-35.0) Mean Corpuscular Hemoglobin Concent 32.0% (32.0-37.0) Red Cell Distribution Width 15.4% (12.3-15.4) Platelet Count 212bil/L (150-400) Neutrophils (%) (Auto) 69.4% (40-74) Lymphocytes (%) (Auto) 19.5% (14-46) Monocytes (%) (Auto) 9.6% (4-12) Eosinophils (%) (Auto) 1.1% (0-5) Basophils (%) (Auto) 0.1% (0-3) Sodium Level 139mEq/L (134-144) Potassium Level 3.8mEq/L (3.5-5.2) Chloride Level 101mEq/L (97-108) Carbon Dioxide Level 25mmol/L (18-29) Blood Urea Nitrogen 5mg/dL (8-27) Creatinine 0.37mg/dL (0.57-1.00) Estimat Glomerular Filtration Rate 237mL/min (>59) Glucose Level 131mg/dL (60-99) Calcium Level 8.2mg/dL (8.5-10.1) Total Bilirubin 0.9mg/dL (0.0-1.2) Aspartate Amino Transf (AST/SGOT) 32U/L (0-50) Alanine Aminotransferase (ALT/SGPT) 65U/L (0-32) Alkaline Phosphatase 133U/L (25-165) Total Protein 5.7g/dL (6.4-8.4) Albumin 3.0g/dL (3.4-5.0) Lipase 20U/L (13-60) Microbiology 10/20/16 Blood Culture - No growth at 2 days 10/21/16 Urine Culture - Mixed Urogenital Rosi Result Diagram: 10/25/16 0559 10/25/16 0559 X-Rays, CTs and MRIs 10/21/16 - US ABDOMEN, LIMITED IMPRESSION: Cholelithiasis. Prominent common bile duct. Please correlate with serum bilirubin. If clinical symptoms persist or clinical suspicion for pathology is high, MRCP is suggested for further evaluation. Approved by: Marvin Rodriguez M.D. on 10/21/2016 at 12:05 10/21/16 - MR ABDOMEN MRCP IMPRESSION: Essentially nondiagnostic examination due to uncontrollable motion artifact. Dilated extrahepatic bile ducts are again noted however intraluminal filling defects (while not discretely visualized) cannot be excluded due to motion degraded images. Approved by: Epifanio Del Real M.D. on 10/21/2016 at 15:21 10/23/16 - X-RAY OPERATIVE CHOLANGIOGRAM IMPRESSION: Prominence of the extrahepatic bile duct as was seen on prior examination and there are several intraluminal filling defects which may represent gas bubbles. Correlate real-time examination. Approved by: Fabio Stockton M.D. on 10/23/2016 at 10:37 10/25/16 - NM HIDA SCAN IMPRESSION: Progressive accumulation of tracer along the inferior margin of liver, compatible with bile leak. The result was discussed with Moe Huerta on 10/25/2016 at 1405 hours. Approved by: Marvin Rodriguez M.D. on 10/25/2016 at 14:24 Assessment & Plan 86-year-old woman with a history of atrial fibrillation who presented to the emergency department with an episode of right upper quadrant pain the day prior to admission. Increasing epigastric pain two days postop from laparoscopic cholecystectomy. - Patient presented with acute onset of epigastric pain and cholestatic liver function tests as well as a dilated bile duct on imaging. LFTs trended down and clinically appeared as though she may have passed a common bile duct stone. - General surgery was consulted and patient underwent laparoscopic cholecystectomy on 10/23. No filing defects noted on intraoperative cholangiogram. - LFTs improved but remain elevated and white blood cell count increasing, most recently 14.0 - Patient reporting increasing epigastric non-radiating pain worse with eating and General Surgery suspect bile leak. - HIDA scan today with findings compatible with bile leak - Continue ceftriaxone 2 g daily and metronidazole 500 mg daily - Case discussed on-call Surgeon, Dr. Sullivan - NPO, plan for ERCP tomorrow Additional problems managed by primary medicine team: -History of atrial fibrillation as per admission -History of bronchitis without diagnosis of COPD . VTE Prophylaxis: Sub-Q Heparin (Unfractionated), SCDs VTE Mechanical Devices: Intermittant Pneumatic CD Resuscitation Status: CPR: Attempt Resuscitation Attending Statement Pt seen and examined agree with resident physician note above cont IV antibiotics will plan for ERCP tomorrow Keep NPO Negrita Valdez DO Oct 25, 2016 11:19 Kalpana Parks MD Oct 28, 2016 18:19
[2016-10-26] VITALS (14 sets, daily range): BP systolic 117–150; BP diastolic 57–78; PULSE 83–100; RESP 12–20; O2SAT 92–97
[2016-10-26] MEDS: Heparin 5,000 Unit/mL Inj SUBQ SCH ×3 (00:12→18:29)
[2016-10-26] MEDS: metroNIDAZOLE Inj 500 MG in IV Premix 1 EACH IV SCH ×2 (02:28→14:36)
[2016-10-26] MEDS: HYDROcodone-APAP 5-325 mg Tablet PO PRN ×4 (05:07→21:27)
[2016-10-26 06:11] LABS: BASOPHILS % (AUTO) 0.1 % (0-3); EOSINOPHILS % (AUTO) 0.3 % (0-5); MONOCYTES % (AUTO) 4.3 % (4-12); Mean Corpuscular Hemoglobin 28.9 pg (27.0-35.0); Mean Corpuscular Volume 90.7 fL (81-100); NEUTROPHILS % (AUTO) 85.7 % (40-74); Platelet Count 226 bil/L (150-400)
[2016-10-26] MEDS: Senna-Docusate 8.6-50 mg Tablet PO SCH ×2 (08:30→20:32)
[2016-10-26] MEDS: HYDROmorphone 1 mg/mL Inj IVPUSH PRN (08:37)
--- NOTE | 2016-10-26 10:13 | PATH ---
SURGICAL PATHOLOGY Attending Physician:Gabriel Gomes MD CASE STATUS: Signed Out PATIENT NAME: JEIMY PRIEST PID: [id number] : 1930 DATE COLLECTED:10/23/2016 00:00 SPECIMEN: Gallbladder CLINICAL HISTORY: 1). GALLBLADDER FINAL DIAGNOSIS: Gallbladder, Excision: Microlithiasis with subacute cholecystitis. Negative for dysplasia and malignancy. ICD10: K80.10 GROSS DESCRIPTION: The specimen is received in one formalin filled container labeled with the patient's name, sublabeled "gallbladder" and consists of an opened 8.0 x 4.0 x 1.5 CM gallbladder. The cystic duct is possibly identified. The serosa is smooth. The wall is 0.2-0.5 CM in thickness. The mucosa is a yellow dao to green dao in color. The lumen contains a dark green mucoid material and no calculus are noted. 5 retail account representative sections are submitted in one cassette. 10/24/2016OH ICD-9 CODES: CPT CODES: 1: 23753 Electronically Signed Out Edison Vásquez MD, PhD [facility] Pathology [facility] [address], [place] [address] Technical component performed at [facility], [address] [place] [address] Ave[address], [place], [address]
[2016-10-26] MEDS: Dextrose 5% 0.9% NaCl 1,000 ML IV SCH (10:23)
--- NOTE | 2016-10-26 11:26 | PROG NOTE ---
[address] [address] PROGRESS NOTE PATIENT: JEIMY PRIEST : 1930 MR#: [id number] ADMIT: 10/21/2016 JOB ID: [id number] DATE: 10/26/2016 SUBJECTIVE: HIDA scan yesterday was positive for bile leak. She has had persistent pain, no fevers. Her abdominal exam is essentially unchanged today. Her white count however is up to 20,000 despite having her antibiotics restarted and her bilirubin has bumped up to 1.3. Lipase remains normal or low. IMPRESSION AND PLAN: Postoperative bile leak, possible due to missed common duct stone. She has been seen by GI and the plan is for an ERCP later today.
--- NOTE | 2016-10-26 12:11 | PCM.PNMED ---
Subjective Date of Service Oct 26, 2016 Subjective Patient is in bed, complaining of abdominal pain. HIDA scan was positive for bile leak. WBC elevated, there is mild increase in bilirubin. GI planning ERCP Exam Vital Signs Vital Sign - Last Date Time Temp Pulse Resp B/P Pulse Ox O2 Delivery O2 Flow Rate FiO2 10/26/16 10:28 36.9 94 18 150/78 95 Nasal Cannula 2.00 Intake and Output 10/25/16 10/25/16 10/26/16 Cumulative From/Thru 15:00 23:00 07:00 10/20/16 20:27 - 10/26/16 06:57 Intake Total 1384 ml 1029 ml 9133 ml Output Total 400 ml 400 ml 5025 ml Balance 984 ml 629 ml 4108 ml Intake Oral 800 ml 300 ml 1888 ml IV Total 584 ml 729 ml 7245 ml Output Urine Total 400 ml 400 ml 5025 ml # Voids 1 1 # Bowel Movements 0 0 0 Exam PHYSICAL EXAM: GENERAL: Alert, in some distress, HEAD: atraumatic, normocephalic, no bruises. EYES: EOMI, anicteric, able to fully open and close eyelids SKIN: Skin color normal, turgor normal. No visible rashes or lesions. EAR, NOSE, MOUTH, THROAT: Lips, oral mucosa, tongue are moist, pink, no lesions. NECK: supple ROM normal. RESPIRATORY: Lungs clear to auscultation. Good diaphragmatic excursion. CARDIAC: normal S1 and S2; no rubs, murmurs, or gallops; regular rate and rhythm ABDOMEN: Abdomen soft, tender. BS normal. No masses or organomegaly. MUSCULOSKELETAL: ROM full, muscles are not tender EXTREMITIES: no pitting edema in LE, no new deformities or skin discoloration. NEURO: Alert, oriented X 3, Cranial nerves II-XII intact, Grossly normal motor function. PULSES: 2+ radial, 2+ carotid REVIEW OF SYSTEMS: GENERAL: + malaise, no fevers., SEE HPI HEENT: Negative for frequent or significant headaches All other reviewed and negative other than HPI. Lab and Diagnostics Result Diagram: 10/26/16 0540 10/26/16 0540 X-Rays, CTs and MRIs 10/21/16 - US ABDOMEN, LIMITED IMPRESSION: Cholelithiasis. Prominent common bile duct. Please correlate with serum bilirubin. If clinical symptoms persist or clinical suspicion for pathology is high, MRCP is suggested for further evaluation. Approved by: Marvin Rodriguez M.D. on 10/21/2016 at 12:05 10/21/16 - MR ABDOMEN MRCP IMPRESSION: Essentially nondiagnostic examination due to uncontrollable motion artifact. Dilated extrahepatic bile ducts are again noted however intraluminal filling defects (while not discretely visualized) cannot be excluded due to motion degraded images. Approved by: Epifanio Del Real M.D. on 10/21/2016 at 15:21 10/23/16 - X-RAY OPERATIVE CHOLANGIOGRAM IMPRESSION: Prominence of the extrahepatic bile duct as was seen on prior examination and there are several intraluminal filling defects which may represent gas bubbles. Correlate real-time examination. Approved by: Fabio Stockton M.D. on 10/23/2016 at 10:37 10/25/16 - NM HIDA SCAN IMPRESSION: Progressive accumulation of tracer along the inferior margin of liver, compatible with bile leak. The result was discussed with Moe Huerta on 10/25/2016 at 1405 hours. Approved by: Marvin Rodriguez M.D. on 10/25/2016 at 14:24 Assessment & Plan Ms. Ny is an 86-year-old female with a past medical history significant for atrial fibrillation who presented to the ED with extreme right upper quadrant abdominal pain. Patient was diagnosed with acute cholecystitis, choledocholithiasis. Patient underwent laparoscopic cholecystectomy. Acute Cholecystitis s/p cholecystectomy. Illeus - stable - Surgery on board - GI following - HIDA scan was positive for bile leak Plan - pain control - Continue antibiotics - ERCP Paroxysmal atrial fibrillation - stable - Monitor on telemetry - patient has not taken any meds in last 2 years. Plan - c/w Metoprolol, ASA Anemia of chronic disease - Stable - Monitor . VTE Prophylaxis: Sub-Q Heparin (Unfractionated) VTE Prophylaxis: Sub-Q Heparin (Unfractionated), SCDs Resuscitation Status: CPR: Attempt Resuscitation VTE Prophylaxis: Sub-Q Heparin (Unfractionated), SCDs VTE Mechanical Devices: Intermittant Pneumatic CD Resuscitation Status: CPR: Attempt Resuscitation Joey Browne MD Oct 26, 2016 12:11
[2016-10-26] MEDS ORDERED: Rocuronium 10 mg/mL 5 mL Inj ONE (16:26)
[2016-10-26] MEDS ORDERED: Phenylephrine 10,000 mCg/mL Inj ONE (16:26)
[2016-10-26] MEDS ORDERED: Dexamethasone 4 mg/mL Inj ONE (16:26)
[2016-10-26] MEDS ORDERED: Neostigmine 1 mg/mL 10 mL Inj ONE (16:26)
[2016-10-26] MEDS ORDERED: Glycopyrrolate 0.2 MG/ML 1mL Inj ONE (16:26)
[2016-10-26] MEDS ORDERED: fentaNYL-PF 50 mCg/mL 2 mL Inj ONE (16:26)
--- NOTE | 2016-10-26 17:19 | PCM.HPANE ---
Patient Data Surgeon Admitting Provider:Yon Moody MD Attending Provider:Joey Browne MD Primary Care Physician:Arminda Jiménez MD Other Provider: Reason for Visit Hepatitis HEPATITIS Ht/WT & BMI Height (Feet): 5 Height (Inches): 0.00 Weight (Kilograms): 73.300 Body Mass Index 31.00 Allergies Coded Allergies: Penicillins (Verified Allergy, Unknown, UNKNOWN, 08/17/13) ampicillin (Verified Allergy, Unknown, UNKNOWN, 08/17/13) Uncoded Allergies: SALMON (Allergy, Unknown, UNKNOWN, 08/17/13) Past Anesthesia History Anesthesia History: Denies:: Anesthesia Reactions, Malignant Hyperthermia Diabetes History Hx Diabetes?: No Current Bedside Blood Glucose: 123 MRSA MRSA: No Medications Home Meds Incl Beta Renae: No Active Scripts Cefuroxime Axetil (Ceftin)500 Mg [id number] Mg PO BID #20 TAB Prov:Deric Luna MD 04/13/15 Prednisone (PredniSONE)20 Mg [id number] Mg PO DAILY #15 TABLET Prov:Deric Luna MD 04/13/15 Albuterol HFA (Proair HFA)8.5 Gm Hfa.aer.ad2 Puffs INHALATION Q4H #1 INHALER Prov:Deric Luna MD 04/13/15 Reported Medications Prednisolone Acetate (Pred Forte)1 Ml Drops.susp1 Gtt OU QID 08/17/13 D-Methorphan/Acetamin/Doxylamn (Vicks Nyquil Cold & Flu Liquid)236 Ml Tlonne79 Ml PO PRN PRN For Congestion 08/17/13 Metoprolol Succinate ER 25 Mg Tab.er.24h25 Mg PO DAILY 30 Days Ref 0 08/17/13 History History of ENT Problems?: Yes HEENT History: Positive for:: Cataracts (S/P EXTRACTIONS) Denture Type: Partial- Upper Teeth Condition: Tooth Decay Missing Teeth Hx of Heart Problems?: Yes Cardiovascular History: Positive for:: Atrial Fibrillation (SHORT BURST PAF) Chest Pain (ATYPICAL HOSP 07/23/13 MPS WNL) Heart Murmur (ECHO 06/2013) Irregular Heartbeat (HOSP 07/09-SHORT BURST PAF NOTED) Valvular Heart Disease (MILD MR,AR) Denies:: Congestive Heart Failure Hypertension Hx of Respiratory Problem?: Yes Respiratory History: Positive for:: Dyspnea (W/ ATYPICAL CHEST PAIN) Pneumonia (YEAR AGO) Denies:: Tuberculosis Use of C-PAP Machine Hx Neurologic Problems?: Yes Hx of GI Problems?: No Hx of Problems?: Yes Genitourinary History: Positive for:: Urinary Tract Infection (TC W/ CIPRO 2013) Female Hx: Denies:: Currently Skin History: Positive for:: History Skin Disorders? (S/P EXC SCALP TUMOR) Denies:: Pressure Ulcers Other Skin Pertinent History: ITCHING ALL OVER Hx Musculoskeletal Problems?: Yes Musculoskeletal History: Positive for:: Musculoskeletal Trauma (RECENT FALL IN SHOWER-C/OF RT KNEE PAIN & SWELLING) Hx of Psycho/Social Problems?: No Hx Surgeries?: No Hx Any Other Health Problems?: Yes Other History: Positive for:: Hospitalization (ATYPICAL CHEST PAIN 07/23/13) Denies:: Cancer Endocrine Disease History Blood Transfusions: Denies:: Blood Transfusions Hx Diabetes: NoBedside Blood Glucose: 123 Hx Alcohol Use: NoHx Substance Use: No Smoking Status: Never Smoker Have You Smoked inLast 12 mo: No Stop/Bang Treated for Sleep Apnea?: No Do You Have a CPAP Machine?: No S-Snoring: Do You Snore Loudly: No T-Tired: feel tired, fatigued: No O-Obsered: Observed not breath: No P-Blood Pressure: treated: No B- Body Mass Index > 35 kg/m2: No A- Age over 50: Yes N- Neck Large Circumference: No G- Gender Male: No SCOOTER Total Score: 1 Risk Assessment Category Category 1A: Patient has history of documented sleep apnea, and HAS NOT received any narcotic, sedative or anesthesia administration during this stay. Category 1B: Patient has history of documented sleep apnea, and HAS received any narcotic , sedative or anesthesia administration during this stay Category 2: Patient has SUSPECTED Obstructive Sleep Apnea, and HAS received any narcotic , sedative or anesthesia administration during this stay. Category 3: Patient has SUSPECTED Obstructive Sleep Apnea and HAS NOT received narcotic, sedative or anesthesia administration during this stay. Category 4: Outpatient in Procedural Areas with known sleep apnea or who screen positive for High Risk via the STOP/BANG questionnaire. Exam Exam Vital Signs Vital Signs Date Time Temp Pulse Resp B/P Pulse Ox O2 Delivery O2 Flow Rate FiO2 10/26/16 15:55 37.2 86 16 117/59 97 Nasal Cannula 2 10/26/16 10:28 36.9 94 18 150/78 95 Nasal Cannula 2.00 General Appearance: Alert, Cooperative, Mild Distress HEENT/AIRWAY: MP 3 Lungs: Clear to Auscultation Heart: Exam Unremarkable Meds/Labs/Diagnostics Admission Meds Current Medications Metoprolol Tartrate (Lopressor) 12.5 mg BID PO Last administered on 10/26/16 10:31; Start 10/25/16 at 20:30 Indomethacin (Indocin Rectal Supp) 100 mg ONCE ONCE RECTAL Last administered on 10/26/16 16:50; Start 10/26/16 at 16:17; Stop 10/26/16 at 16:22; Status DC Bedside Blood Glucose: 123 Labs Test 10/20/16 18:54 10/21/16 10:35 10/21/16 20:03 10/23/16 05:25 Lactic Acid Level 1.2mmol/L (0.4-2.0) Magnesium Level 1.9mg/dL (1.6-2.6) Troponin T < 0.010ug/L (0.0-0.011) Urine Color Dark yellow (YELLOW) Urine Appearance Clear (CLEAR,HAZY) Urine pH 6.0 (5.0-8.0) Urine Specific [place] 1.018 (1.003-1.035) Urine Protein Negativemg/dL (NEG,TRACE) Urine Glucose (UA) Negativemg/dL (NEGATIVE) Urine Ketones Negativemg/dL (NEGATIVE) Urine Occult Blood Small (NEGATIVE) Urine Nitrite Positive (NEGATIVE) Urine Bilirubin Small (NEGATIVE) Urine Ictotest Positive (Negative) Urine Urobilinogen Normalmg/dL (NORMAL) Urine Leukocyte Esterase Trace (NEGATIVE) Urine RBC 3-10/hpf (0-2) Urine WBC 6-10/hpf (0-5) Urine Epithelial Cells Few/hpf (NONE-MOD) Urine Crystals None seen (NONE SEEN) Urine Bacteria Few/hpf (NONE-FEW) Urine Hyaline Casts None/lpf (NONE) Urine Granular Casts None seen (NONE SEEN) Urine Waxy Casts None seen (NONE SEEN) Urine Red Blood Cell Casts None seen (NONE SEEN) Urine White Blood Cell Casts None seen (NONE SEEN) Urine Mucus None seen (None Seen) Urine Trichomonas None seen (NONE SEEN) Urine Yeast None (NONE SEEN) Urinalysis Comment None Urine Culture Reflexed Indicated Prothrombin Time 10.9sec (8.1-12.5) Prothromb Time International Ratio 1.02ratio Direct Bilirubin 0.2mg/dL (0.0-0.3) Test 10/26/16 05:40 White Blood Count 20.3th/mm3 (3.8-10.1) Red Blood Count 3.88mil/mm3 (3.90-5.20) Hemoglobin 11.2g/dL (12.0-15.6) Hematocrit 35.2% (35.0-46.0) Mean Corpuscular Volume 90.7fL (81-100) Mean Corpuscular Hemoglobin 28.9pg (27.0-35.0) Mean Corpuscular Hemoglobin Concent 31.8% (32.0-37.0) Red Cell Distribution Width 15.5% (12.3-15.4) Platelet Count 226bil/L (150-400) Neutrophils (%) (Auto) 85.7% (40-74) Lymphocytes (%) (Auto) 9.1% (14-46) Monocytes (%) (Auto) 4.3% (4-12) Eosinophils (%) (Auto) 0.3% (0-5) Basophils (%) (Auto) 0.1% (0-3) Sodium Level 136mEq/L (134-144) Potassium Level 3.5mEq/L (3.5-5.2) Chloride Level 98mEq/L (97-108) Carbon Dioxide Level 26mmol/L (18-29) Blood Urea Nitrogen 5mg/dL (8-27) Creatinine 0.32mg/dL (0.57-1.00) Estimat Glomerular Filtration Rate 280mL/min (>59) Glucose Level 135mg/dL (60-99) Calcium Level 8.1mg/dL (8.5-10.1) Total Bilirubin 1.3mg/dL (0.0-1.2) Aspartate Amino Transf (AST/SGOT) 22U/L (0-50) Alanine Aminotransferase (ALT/SGPT) 47U/L (0-32) Alkaline Phosphatase 132U/L (25-165) Total Protein 5.4g/dL (6.4-8.4) Albumin 3.0g/dL (3.4-5.0) Lipase 12U/L (13-60) Plan Impression Patient chart reviewed, patient interviewed and anesthestic plan with risks, benefits, and alternatives discussed, and informed consent obtained. NPO per Anesth. Guidelines: Yes ASA Physical Status: ASA3 Plus Emergency Anesthetic Plan: GA Bene/Risks/Altern/Consents: Yes HP Complete Prior to Induction: Yes Shaka Gary MD Oct 26, 2016 17:19
[2016-10-26] MEDS ORDERED: Lactated Ringer's 1,000 ML IV ONE (17:23)
[2016-10-26] MEDS ORDERED: Lactated Ringer's 1,000 ML IV SCH (17:47)
[2016-10-26] MEDS ORDERED: Lactated Ringer's 500 ML IV PRN (17:47)
--- NOTE | 2016-10-26 17:49 | PCM.ANEP1 ---
Post Anesthesia PACU Phase 1 Assessment Vital Signs Vital Signs Date Time Temp Pulse Resp B/P Pulse Ox O2 Delivery O2 Flow Rate FiO2 10/26/16 17:43 37.6 100 13 125/63 97 Nasal Cannula 2 10/26/16 15:55 37.2 86 16 117/59 97 Nasal Cannula 2 10/26/16 10:28 36.9 94 18 150/78 95 Nasal Cannula 2.00 Anesthetic Administered: GA Level of Alertness: Sleepy, easy to arouse MAYERS's with Equal Strength: Yes Pain: Yes Pain Scale Score: 4 Nausea or Vomiting: No CV Function & Hydration Stable: Yes Airway Device: None Lungs: Clear to Auscultation PACU Phase 2 Assessment Complications: No Follow up Care: N/A Patient Instructions Provided: N/A Shaka Gary MD Oct 26, 2016 17:49
[2016-10-26] MEDS ORDERED: fentaNYL-PF 50 mCg/mL 2 mL Inj IVPUSH PRN (17:50)
[2016-10-26] MEDS ORDERED: Phenylephrine 10,000 mCg/mL Inj IVPUSH PRN (17:50)
[2016-10-26] MEDS ORDERED: Dexamethasone 4 mg/mL Inj IVPUSH PRN (17:50)
[2016-10-26] MEDS ORDERED: Ondansetron 2 mg/mL 2 mL Inj IVPUSH PRN (17:50)
[2016-10-26] MEDS ORDERED: EPHEDrine Sulfate 50 mg/mL Inj IVPUSH PRN (17:50)
[2016-10-26] MEDS ORDERED: HYDROmorphone 1 mg/mL Inj IVPUSH PRN (17:50)
[2016-10-26] MEDS: cefTRIAXone Inj 2,000 MG in Dextrose 5% Minibag Plus 50 ML IV SCH (18:28)
--- NOTE | 2016-10-26 18:56 | ENDO ---
[address] [address] ENDOSCOPY PROCEDURE PATIENT: JEIMY PRIEST : 1930 MR#: [id number] ADMIT: 10/21/2016 JOB ID: [id number] DATE: 10/26/2016 PROCEDURE: Endoscopic retrograde cholangiopancreatogram (ERCP). INDICATION: Bile leak seen on HIDA scan that was performed yesterday. Patient also with increasing leukocytosis and epigastric pain. ANESTHESIA: Please see anesthesia report for details regarding ASA classification, Mallampati score, and details regarding general anesthesia. INSTRUMENT USED: TJF Q180V side-viewing duodenoscope. PROCEDURE DETAILS: After informed consent was obtained, the patient was brought into the GI suite where she was placed under general anesthesia after a time-out was performed and then placed in the standard ERCP position. The initial coffee attendant film revealed clips in the expected place from her recent gallbladder surgery. The standard side-viewing duodenoscope was introduced through the bite block and advanced without difficulty into the second portion of the duodenum. In the stomach there was a large amount of undigested food. The ampulla was identified and bile was seen flowing from the ampulla. Next, using a [employer] 7-Pakistani Autotome, selective biliary cannulation was achieved with wire guidance. Initial cholangiogram demonstrated a dilated common bile duct measuring approximately 10-11 mm. No filling defects were appreciated. The intrahepatic ducts also appeared to be mildly dilated. As I injected more and more contrast, I did notice a blush just inferior to the right hepatic duct. Next a moderate size moderate-size sphincterotomy was performed. Following this, a 10-Pakistani x 5 cm [employer] plastic stent was placed. Following placement of the stent there was rapid flow of contrast and bile. Final fluoro images demonstrated the stent to be in adequate position. IMPRESSION: Low grade bile leak. RECOMMENDATIONS: 1. Continue IV antibiotics. Continue to follow LFTs. 2. Repeat ERCP in 6-8 weeks for biliary stent removal. COMPLICATIONS: None. ESTIMATED BLOOD LOSS: Zero.
[2016-10-26] MEDS: Benzocaine (Hurricaine) 20% Unit-Dose Spray MUC_MEMBRM PRN (21:21)
[2016-10-27] VITALS (9 sets, daily range): BP systolic 121–188; BP diastolic 53–90; PULSE 76–140; RESP 16–20; O2SAT 92–100
[2016-10-27] MEDS: Heparin 5,000 Unit/mL Inj SUBQ SCH ×3 (02:48→15:55)
[2016-10-27] MEDS: metroNIDAZOLE Inj 500 MG in IV Premix 1 EACH IV SCH ×2 (02:49→14:37)
[2016-10-27 07:16] LABS: BASOPHILS % (AUTO) 0.1 % (0-3); EOSINOPHILS % (AUTO) 0 % (0-5); Mean Corpuscular Hemoglobin 29.8 pg (27.0-35.0); NEUTROPHILS % (AUTO) 90.6 % (40-74); Platelet Count 257 bil/L (150-400)
[2016-10-27] MEDS: Senna-Docusate 8.6-50 mg Tablet PO SCH (08:04)
[2016-10-27] MEDS: Dextrose 5% 0.9% NaCl 1,000 ML IV SCH (08:04)
--- NOTE | 2016-10-27 08:44 | PCM.PNMED ---
Subjective Date of Service Oct 27, 2016 Subjective GASTROENTEROLOGY PROGRESS NOTE: Attending Physician: Kalpana Parks MD Resident Physician: Negrita Valdez DO No acute events overnight. Patient is s/p laparoscopic cholecystectomy 4 days ago complicated by postoperative bile leak. Now s/p ERCP on 10/26/16. LFTs continue to improve. WBC is trending up, most recently 23.0 with left shift and procalcitonin 0.59. Currently receiving ceftriaxone and flagyl. Interview conducted via video welding machine operator helper arc with some difficulty. Patient interrupting at times and welding machine operator helper arc stated that the patient was difficult to understand as well. What I did learn is that the patient reports improvement in shortness of breath as well as her abdominal pain following the ERCP. She states that she still has pain in RUQ, which is tolerable and well controlled. But now reports some tenderness on her left side as well. Her main complaint is dryness in her mouth. Exam Vital Signs Vital Sign - Last Date Time Temp Pulse Resp B/P Pulse Ox O2 Delivery O2 Flow Rate FiO2 10/27/16 07:54 36.4 83 20 137/90 95 Nasal Cannula 2.00 Intake and Output 10/26/16 10/26/16 10/27/16 Cumulative From/Thru 15:00 23:00 07:00 10/20/16 20:27 - 10/27/16 06:31 Intake Total 963 ml 468 ml 28001 ml Output Total 500 ml 150 ml 5675 ml Balance 463 ml 318 ml 4889 ml Intake Oral 0 ml 468 ml 2356 ml IV Total 963 ml 8208 ml Output Urine Total 500 ml 150 ml 5675 ml # Voids 1 # Bowel Movements 0 0 Exam General: Elderly, woman. Appears uncomfortable and in no acute distress. Perhaps mildly confused, video welding machine operator helper arc found the patient difficult to understand at times. Lungs: Clear to auscultation without crackles, rhonchi or wheezes Cardiovascular: Regular rate and rhythm. No murmurs Abdomen: Soft, mildly distended, no rebound or guarding. Tenderness to palpation in RUQ, laparoscopic incisions covered-dressing clean, dry and intact without drainage. Hypoactive bowel tones. Extremities: No edema or cyanosis. Skin: Warm and dry. No obvious rashes or ulcerations Neurological: Difficult to asses. Patient is awake/alert and alert to self as well as place. Grossly neurologically intact. IVs and Medications Medications Reviewed: Medications were reviewed in detail Lab and Diagnostics Laboratory Tests Test 10/27/16 07:10 White Blood Count 23.0th/mm3 (3.8-10.1) Red Blood Count 3.63mil/mm3 (3.90-5.20) Hemoglobin 10.8g/dL (12.0-15.6) Hematocrit 33.4% (35.0-46.0) Mean Corpuscular Volume 92.0fL (81-100) Mean Corpuscular Hemoglobin 29.8pg (27.0-35.0) Mean Corpuscular Hemoglobin Concent 32.3% (32.0-37.0) Red Cell Distribution Width 15.6% (12.3-15.4) Platelet Count 257bil/L (150-400) Neutrophils (%) (Auto) 90.6% (40-74) Lymphocytes (%) (Auto) 4.9% (14-46) Monocytes (%) (Auto) 4.0% (4-12) Eosinophils (%) (Auto) 0% (0-5) Basophils (%) (Auto) 0.1% (0-3) Sodium Level 135mEq/L (134-144) Potassium Level 3.8mEq/L (3.5-5.2) Chloride Level 98mEq/L (97-108) Carbon Dioxide Level 27mmol/L (18-29) Blood Urea Nitrogen 11mg/dL (8-27) Creatinine 0.50mg/dL (0.57-1.00) Estimat Glomerular Filtration Rate 168mL/min (>59) Glucose Level 146mg/dL (60-99) Calcium Level 8.3mg/dL (8.5-10.1) Total Bilirubin 0.7mg/dL (0.0-1.2) Aspartate Amino Transf (AST/SGOT) 14U/L (0-50) Alanine Aminotransferase (ALT/SGPT) 34U/L (0-32) Alkaline Phosphatase 117U/L (25-165) Total Protein 6.0g/dL (6.4-8.4) Albumin 2.6g/dL (3.4-5.0) Lipase 8U/L (13-60) Microbiology 10/20/16 Blood Culture - NO GROWTH AFTER 5 DAYS 10/21/16 Urine Culture - Mixed Urogenital Rosi Result Diagram: 10/27/16 0710 10/27/16 0710 X-Rays, CTs and MRIs 10/21/16 - US ABDOMEN, LIMITED IMPRESSION: Cholelithiasis. Prominent common bile duct. Please correlate with serum bilirubin. If clinical symptoms persist or clinical suspicion for pathology is high, MRCP is suggested for further evaluation. Approved by: Marvin Rodriguez M.D. on 10/21/2016 at 12:05 10/21/16 - MR ABDOMEN MRCP IMPRESSION: Essentially nondiagnostic examination due to uncontrollable motion artifact. Dilated extrahepatic bile ducts are again noted however intraluminal filling defects (while not discretely visualized) cannot be excluded due to motion degraded images. Approved by: Epifanio Del Real M.D. on 10/21/2016 at 15:21 10/23/16 - X-RAY OPERATIVE CHOLANGIOGRAM IMPRESSION: Prominence of the extrahepatic bile duct as was seen on prior examination and there are several intraluminal filling defects which may represent gas bubbles. Correlate real-time examination. Approved by: Fabio Stockton M.D. on 10/23/2016 at 10:37 10/25/16 - NM HIDA SCAN IMPRESSION: Progressive accumulation of tracer along the inferior margin of liver, compatible with bile leak. The result was discussed with Moe Huerta on 10/25/2016 at 1405 hours. Approved by: Marvin Rodriguez M.D. on 10/25/2016 at 14:24 Additional Diagnostics 10/26/16 - ERCP IMPRESSION: Low grade bile leak. RECOMMENDATIONS: 1. Continue IV antibiotics. Continue to follow LFTs. 2. Repeat ERCP in 6-8 weeks for biliary stent removal. Kalpana Parks MD 10/26/16 2146 Assessment & Plan 86-year-old woman with a history of atrial fibrillation who presented to the emergency department with an episode of right upper quadrant pain the day prior to admission. Acute cholecystitis s/p laparoscopic cholecystectomy 4 days ago complicated by a bile leak. Now s/p ERCP with biliary stent placement on 10/26/16 . - Patient tolerated the procedure well and LFTs essentially wnl this morning. It is somewhat concerning that her WBC continues to trend up while receiving IV ceftriaxone and metronidazole. Patient reports improvement in abdominal pain as well as shortness of breath and reports dry mouth. - If infectious markers continue to trend up and/or patient clinically deteriorates may consider fungal blood cultures and/or the addition of antibiotic coverage for Enterococcus. - From a GI standpoint, recommend continue IV antibiotics and monitor LFTs. Repeat ERCP in 6-8 weeks for biliary stent removal. Additional problems managed by primary medicine team: -History of atrial fibrillation as per admission -History of bronchitis without diagnosis of COPD . VTE Prophylaxis: Sub-Q Heparin (Unfractionated), SCDs VTE Mechanical Devices: Intermittant Pneumatic CD Resuscitation Status: CPR: Attempt Resuscitation Attending Statement Pt seen and examined agree with above discussed with Surgical PA regarding plan Negrita Valdez DO Oct 27, 2016 08:44 Kalpana Parks MD Oct 28, 2016 18:20 - Continue ceftriaxone 2 g daily and metronidazole 500 mg daily - Case discussed on-call Surgeon, Dr. Sullivan - NPO, plan for ERCP tomorrow Additional problems managed by primary medicine team: -History of atrial fibrillation as per admission -History of bronchitis without diagnosis of COPD . 10/26/16 - ERCP IMPRESSION: Low grade bile leak. RECOMMENDATIONS: 1. Continue IV antibiotics. Continue to follow LFTs. 2. Repeat ERCP in 6-8 weeks for biliary stent removal. Kalpana Parks MD 10/26/16 8724 VTE Prophylaxis: Sub-Q Heparin (Unfractionated), SCDs VTE Mechanical Devices: Intermittant Pneumatic CD Resuscitation Status: CPR: Attempt Resuscitation Negrita Valdez DO Oct 27, 2016 08:44
--- NOTE | 2016-10-27 08:55 | PCM.PNSURG ---
Subjective Date of Service: Oct 27, 2016 Date of Service: Oct 27, 2016 Visit Information: Reason for Visit Hepatitis Surgery/Surgery Date lap barney w/cholangiogram 10/23/16 Post-Op Day # 4 Date of Admission: Oct 21, 2016 at 01:19 Hospital Day # Subjective: Seen with skoog patching machine operator. Improved but persistent diffuse pain predominantly in RUQ/LLQ & headache today; tolerating a clear diet status post ERCP for small bile leak & stenting. Admits to improved epigastric pain. Pain well-controlled when she agrees to take analgesics. Still complains of mild initial dizziness with standing. Voiding but is not passing gas. Encouraged to drink more fluids. Denies fevers, nausea, &/or vomiting. GI is following & medicine is primary. Gastrointestinal: Tolerating Oral Feedings, No N/V Pain Management: PO, Good Pain Control Postop Activity: Ambulate with Assist Objective Vital Sign- Last 8 Hours Date Time Temp Pulse Resp B/P Pulse Ox O2 Delivery O2 Flow Rate FiO2 10/27/16 07:54 36.4 83 20 137/90 95 Nasal Cannula 2.00 10/27/16 06:20 79 10/27/16 05:00 36.5 81 18 130/73 94 Nasal Cannula 2.00 Intake and Output- Last 8 Hour 10/27/16 Cumulative From/Thru 07:00 10/20/16 20:27 - 10/27/16 06:31 Intake Total 468 ml 00355 ml Output Total 150 ml 5675 ml Balance 318 ml 4889 ml Intake Oral 468 ml 2356 ml IV Total 8208 ml Output Urine Total 150 ml 5675 ml # Voids 1 # Bowel Movements 0 0 General: Alert, Cooperative, No Acute Distress Lungs: Clear to Auscultation Heart: Exam Unremarkable Abdomen: Soft, Appropriately tender, Non-distended SURGICAL WOUND : Wound General Appearence: Steri Strips, Intact, No Erythema, No Discharge, No Inflammatory Changes Dressing & Drainage Status: Intact Extremities: Thigh&Calf Soft/Nontender Neuro: Normal Speech Result Diagram: 10/27/16 0710 10/27/16 0710 Additional Information: See ERCP Report Assessment & Plan Impression Primary Diagnoses: 1. Acute cholecystitis 2. Status post laparoscopic cholecystectomy with cholangiogram: POD # 4 w/ confirmed small bile leak on ERCP, stenting, & persistent leukocytosis Other Medical History: Obesity Cataracts Valvular heart disease Glaucoma Atrial fibrillation Urinary tract infections Problems: Problems: Plan Plan 1. Appreciate GI input 2. Medical care per Attending Hospitalist 3. PT Orthostatics 4. Advance to low fat diet as tolerated 5. Consider CT abdomen/pelvis w/ IV contrast if abdominal complaints or leukocytosis persists or worsens. 6. Possible disposition home this weekend if improved. Pain Management: PRN PO APAP, oxycodone & hydrocodone + PRN IV hydromorphone for severe BTP VTE Prophylaxis: Sub-Q Heparin (Unfractionated), SCDs Resuscitation Status: CPR: Attempt Resuscitation Moe Huerta PA-C Oct 27, 2016 08:55
[2016-10-27] MEDS: HYDROcodone-APAP 5-325 mg Tablet PO PRN ×3 (11:00→23:54)
--- NOTE | 2016-10-27 14:17 | PCM.PNMED ---
Subjective Date of Service Oct 27, 2016 Subjective Patient is in bed, complaining of abdominal pain which is improving. Patient had ERCP yesterday with Patient underwent ERCP with moderate size moderate-size sphincterotomy and stent placement. Leukocytosis is worsening today. I check her pro-calcitonin is mildly elevated 0.59. Continue with IV antibiotics Exam Vital Signs Vital Sign - Last Date Time Temp Pulse Resp B/P Pulse Ox O2 Delivery O2 Flow Rate FiO2 10/27/16 12:27 36.4 77 18 152/73 100 Nasal Cannula 2.00 Intake and Output 10/26/16 10/26/16 10/27/16 Cumulative From/Thru 15:00 23:00 07:00 10/20/16 20:27 - 10/27/16 06:31 Intake Total 963 ml 468 ml 49841 ml Output Total 500 ml 150 ml 5675 ml Balance 463 ml 318 ml 4889 ml Intake Oral 0 ml 468 ml 2356 ml IV Total 963 ml 8208 ml Output Urine Total 500 ml 150 ml 5675 ml # Voids 1 # Bowel Movements 0 0 Exam GENERAL: Alert, not in distress HEAD: atraumatic, normocephalic, no bruises. EYES: LAURA, EOMI, anicteric, able to fully open and close eyelids SKIN: Skin color normal, turgor normal. No visible rashes EAR, NOSE, MOUTH, THROAT: Lips, oral mucosa, tongue are moist, pink, no lesions. NECK: no jugulovenous distention; supple ROM normal. RESPIRATORY: Lungs clear to auscultation. Good diaphragmatic excursion. CARDIAC: normal S1 and S2; no rubs, murmurs, or gallops; regular rate and rhythm ABDOMEN: Abdomen soft, tender. BS normal. MUSCULOSKELETAL: ROM full, muscles are not tender EXTREMITIES: no pitting edema in LE, no new deformities or skin discoloration. NEURO: Alert, oriented X 3, Cranial nerves II-XII intact, Grossly normal motor function. PULSES: 2+ radial, 2+ carotid REVIEW OF SYSTEMS: GENERAL: no malaise, no fevers., SEE HPI HEENT: Negative for frequent or significant headaches All other reviewed and negative other than HPI. IVs and Medications Medications Reviewed: Medications were reviewed in detail Lab and Diagnostics Result Diagram: 10/27/16 0710 10/27/16 0710 X-Rays, CTs and MRIs 10/21/16 - US ABDOMEN, LIMITED IMPRESSION: Cholelithiasis. Prominent common bile duct. Please correlate with serum bilirubin. If clinical symptoms persist or clinical suspicion for pathology is high, MRCP is suggested for further evaluation. Approved by: Marvin Rodriguez M.D. on 10/21/2016 at 12:05 10/21/16 - MR ABDOMEN MRCP IMPRESSION: Essentially nondiagnostic examination due to uncontrollable motion artifact. Dilated extrahepatic bile ducts are again noted however intraluminal filling defects (while not discretely visualized) cannot be excluded due to motion degraded images. Approved by: Epifaino Del Real M.D. on 10/21/2016 at 15:21 10/23/16 - X-RAY OPERATIVE CHOLANGIOGRAM IMPRESSION: Prominence of the extrahepatic bile duct as was seen on prior examination and there are several intraluminal filling defects which may represent gas bubbles. Correlate real-time examination. Approved by: Fabio Stockton M.D. on 10/23/2016 at 10:37 10/25/16 - NM HIDA SCAN IMPRESSION: Progressive accumulation of tracer along the inferior margin of liver, compatible with bile leak. The result was discussed with Moe Huerta on 10/25/2016 at 1405 hours. Approved by: Marvin Rodirguez M.D. on 10/25/2016 at 14:24 Additional Diagnostics 10/26/16 - ERCP IMPRESSION: Low grade bile leak. RECOMMENDATIONS: 1. Continue IV antibiotics. Continue to follow LFTs. 2. Repeat ERCP in 6-8 weeks for biliary stent removal. Kalpana Parks MD 10/26/16 1669 Assessment & Plan 86-year-old woman with a history of atrial fibrillation who presented to the emergency department with an episode of right upper quadrant pain the day prior to admission. Acute Cholecystitis s/p cholecystectomy. Status post ERCP on 10/26/16 with moderate sphincterotomy and stent placement - stable - Surgery on board - GI following - HIDA scan was positive for bile leak Plan - pain control - Continue antibiotics - ERCP Paroxysmal atrial fibrillation - stable - Monitor on telemetry - patient has not taken any meds in last 2 years. Plan - c/w Metoprolol, ASA Anemia of chronic disease - Stable - Monitor DVT prophylaxis - subcutaneous heparin Code status: Full code Disposition: discharge in 2-3 days after patient improves. Labs, radiology tests, reviewed. Plan of care, diagnostic procedures and available alternatives were discussed and reviewed with patient/family. All questions answered. Patient/family verbalized understanding, approved and agreed to plan of care. VTE Prophylaxis: Sub-Q Heparin (Unfractionated), SCDs VTE Mechanical Devices: Intermittant Pneumatic CD Resuscitation Status: CPR: Attempt Resuscitation Joey Browne MD Oct 27, 2016 14:17
[2016-10-27] MEDS: cefTRIAXone Inj 2,000 MG in Dextrose 5% Minibag Plus 50 ML IV SCH (15:54)
--- NOTE | 2016-10-27 17:04 | DRSVH ---
PROCEDURE: X-RAY E.R.C. BILIARY DUCTS ([id number]) INDICATIONS: BILE LEAK TECHNIQUE: Fluoroscopic spot films were acquired by the gastroenterology service during ERCP procedu re. COMPARISON: [facility], [place], [place] HIDA SCAN BILE LEAK, 10/25/2016, 12:12. [facility] pital, CR, XR CHOLANGIOGRAM OPERATIVE, 10/23/2016, 8:36. FINDINGS: Examination limited to 3 submitted images. Within the limits, extrahepatic and central int rahepatic bile ducts are opacified but appear grossly normal, although the distal common bile duct is not completely opacified and cannot be assessed. No definite intraluminal filling defects are seen. Biliary endoprosthesis was placed. IMPRESSION: Limited exam demonstrating grossly normal extrahepatic bile duct, although the distal common bile curry t is not completely opacified and cannot be thoroughly assessed. Correlate with real time examinatio n. Biliary endoprosthesis placed. Dictated by: Michael Wise [facility] Interpreted: Sophy Navarro MD on 10/27/2016 at 9:07 Approved by: Sophy Navarro M.D. on 10/27/2016 at 17:03
[2016-10-28] VITALS (8 sets, daily range): BP systolic 118–177; BP diastolic 68–95; PULSE 73–112; RESP 16–24; O2SAT 90–98
[2016-10-28] MEDS: Senna-Docusate 8.6-50 mg Tablet PO SCH ×3 (00:03→20:06)
[2016-10-28] MEDS: Heparin 5,000 Unit/mL Inj SUBQ SCH ×3 (00:59→16:18)
[2016-10-28] MEDS: metroNIDAZOLE Inj 500 MG in IV Premix 1 EACH IV SCH ×2 (02:45→14:41)
[2016-10-28] MEDS: HYDROcodone-APAP 5-325 mg Tablet PO PRN (04:24)
[2016-10-28] MEDS: Benzocaine (Hurricaine) 20% Unit-Dose Spray MUC_MEMBRM PRN (04:30)
[2016-10-28] MEDS: Dextrose 5% 0.9% NaCl 1,000 ML IV SCH ×2 (04:30→17:20)
[2016-10-28] MEDS: HYDROmorphone 1 mg/mL Inj IVPUSH PRN ×4 (08:45→22:53)
--- NOTE | 2016-10-28 09:10 | PCM.PNMED ---
Subjective Date of Service Oct 28, 2016 Subjective Patient is in bed, complaining of abdominal pain. Blood pressure mildly elevated. CBC, BMP pending. Exam Vital Signs Vital Sign - Last Date Time Temp Pulse Resp B/P Pulse Ox O2 Delivery O2 Flow Rate FiO2 10/28/16 06:09 112 10/28/16 05:04 36.6 24 177/83 92 Room Air 10/27/16 16:08 2.00 Intake and Output 10/27/16 10/27/16 10/28/16 Cumulative From/Thru 15:00 23:00 07:00 10/20/16 20:27 - 10/28/16 05:08 Intake Total 1105 ml 34767 ml Output Total 875 ml 6550 ml Balance 230 ml 5119 ml Intake Oral 1105 ml 3461 ml IV Total 8208 ml Output Urine Total 875 ml 6550 ml # Voids 1 # Bowel Movements 1 1 Exam GENERAL: Alert, not in distress, in bed HEAD: atraumatic, no bruises. EYES: EOMI, anicteric, able to fully open and close eyelids SKIN: Skin color normal, turgor normal. No visible rashes or lesions. EAR, NOSE, MOUTH, THROAT: Lips, oral mucosa, tongue gums, oropharynx are moist , pink, no lesions. NECK: no jugulovenous distention; supple ROM normal. RESPIRATORY: Lungs clear to auscultation. Good diaphragmatic excursion. CARDIAC: normal S1 and S2; no rubs, murmurs, or gallops; regular rate and rhythm ABDOMEN: Abdomen soft, tender. No masses or organomegaly. MUSCULOSKELETAL: ROM full, muscles are not tender EXTREMITIES: no pitting edema in LE, no new deformities or skin discoloration. NEURO: Alert, oriented X 3, Sensation grossly intact., Cranial nerves II-XII intact, Grossly normal motor function. PULSES: 2+ radial, 2+ carotid IVs and Medications Medications Reviewed: Medications were reviewed in detail Lab and Diagnostics Result Diagram: 10/27/16 0710 10/27/16 0710 X-Rays, CTs and MRIs 10/21/16 - US ABDOMEN, LIMITED IMPRESSION: Cholelithiasis. Prominent common bile duct. Please correlate with serum bilirubin. If clinical symptoms persist or clinical suspicion for pathology is high, MRCP is suggested for further evaluation. Approved by: Marvin Rodriguez M.D. on 10/21/2016 at 12:05 10/21/16 - MR ABDOMEN MRCP IMPRESSION: Essentially nondiagnostic examination due to uncontrollable motion artifact. Dilated extrahepatic bile ducts are again noted however intraluminal filling defects (while not discretely visualized) cannot be excluded due to motion degraded images. Approved by: Epifanio Del Real M.D. on 10/21/2016 at 15:21 10/23/16 - X-RAY OPERATIVE CHOLANGIOGRAM IMPRESSION: Prominence of the extrahepatic bile duct as was seen on prior examination and there are several intraluminal filling defects which may represent gas bubbles. Correlate real-time examination. Approved by: Fabio Stockton M.D. on 10/23/2016 at 10:37 10/25/16 - NM HIDA SCAN IMPRESSION: Progressive accumulation of tracer along the inferior margin of liver, compatible with bile leak. The result was discussed with Moe Huerta on 10/25/2016 at 1405 hours. Approved by: Marvin Rodriguez M.D. on 10/25/2016 at 14:24 Additional Diagnostics 10/26/16 - ERCP IMPRESSION: Low grade bile leak. RECOMMENDATIONS: 1. Continue IV antibiotics. Continue to follow LFTs. 2. Repeat ERCP in 6-8 weeks for biliary stent removal. Kalpana Parks MD 10/26/16 1531 Assessment & Plan 86-year-old woman with a history of atrial fibrillation who presented to the emergency department with an episode of right upper quadrant pain the day prior to admission. Patient had cholecystectomy which was complicated by bile leak, later she had ERCP with moderate sphincterotomy and stent placement Acute Cholecystitis s/p cholecystectomy. Status post ERCP on 10/26/16 with moderate sphincterotomy and stent placement - stable - Surgery on board - GI following - HIDA scan was positive for bile leak - Procalcitonin elevated Plan - pain control - Continue antibiotics -CBC, BMP Hypertension - Increase metoprolol to 25 mg twice a day Paroxysmal atrial fibrillation - stable - Monitor on telemetry - patient has not taken any meds in last 2 years. Plan - c/w Metoprolol, ASA Anemia of chronic disease - Stable - Monitor DVT prophylaxis - subcutaneous heparin Code status: Full code Labs, radiology tests, reviewed. Plan of care, diagnostic procedures and available alternatives were discussed and reviewed with patient/family. All questions answered. Patient/family verbalized understanding, approved and agreed to plan of care. VTE Prophylaxis: Sub-Q Heparin (Unfractionated), SCDs VTE Mechanical Devices: Intermittant Pneumatic CD Resuscitation Status: CPR: Attempt Resuscitation Joey Browne MD Oct 28, 2016 09:09
[2016-10-28 09:43] LABS: BASOPHILS % (AUTO) 0.1 % (0-3); EOSINOPHILS % (AUTO) 0.5 % (0-5); MONOCYTES % (AUTO) 5.9 % (4-12); Mean Corpuscular Hemoglobin 29.3 pg (27.0-35.0); NEUTROPHILS % (AUTO) 83.2 % (40-74); Platelet Count 317 bil/L (150-400)
[2016-10-28 09:58] LABS: INR 0.94 ratio
[2016-10-28 10:04] LABS: TROPONIN T 0.01 ug/L (0.0-0.011)
[2016-10-28 10:15] LABS: Magnesium 1.7 mg/dL (1.6-2.6)
--- NOTE | 2016-10-28 11:38 | PROG NOTE ---
[address] [address] PROGRESS NOTE PATIENT: JEIMY PRIEST : 1930 MR#: [id number] ADMIT: 10/21/2016 JOB ID: [id number] DATE: 10/28/2016 SUBJECTIVE: The patient was seen with the video concrete plant laborer. She complains that she did not sleep at all overnight because of abdominal pain. She is not complaining of nausea. The pain is in the right upper quadrant. OBJECTIVE: Temperature 36.6, pulse 90, blood pressure 177/83, saturation 92% on room air. General: She is sitting up in bed, uncomfortable. HEENT: Sclerae are anicteric. Chest: Clear. Heart: Regular rate and rhythm. No murmurs. Abdomen: Nondistended. Her incisions are clean, with no erythema. I am not able to elicit any guarding. LABORATORY: From yesterday showed white blood cell count 23.0, hematocrit 33.4, platelets 257. Creatinine 0.50, glucose 146, bilirubin 0.7. AST 14, ALT 34, alkaline phosphatase 117. ASSESSMENT AND PLAN: An 86-year-old woman status post laparoscopic cholecystectomy complicated by bile leak, status post ERCP and biliary stenting. Labs from today have been ordered but are pending. Recommend abdominal imaging, which has not been done since her surgery, to look for intra-abdominal fluid collection like a biloma. She has had a run of what appears to be atrial fibrillation yesterday; hospitalist service is aware and is recommending metoprolol and aspirin. Antibiotics will be continued.
--- NOTE | 2016-10-28 11:57 | DRSVH ---
PROCEDURE: CT ABDOMEN AND PELVIS WITH CONTRAST ([id number]) INDICATIONS: evaluate for biloma TECHNIQUE: After the administration of intravenous contrast, 5 mm thick sections acquired from the diaphragm to the symphysis. 5 mm coronal and sagittal reformats were acquired. For radiation dose reduction, the following was used: automated exposure control, adjustment of mA and/or kV according to patient siz e. COMPARISON: [facility], CR, XR ERC BILIARY DUCTS, 10/26/2016, 17:06. [facility], NM, NM HIDA SCAN BILE LEAK, 10/25/2016, 12:12. FINDINGS: Image quality: Excellent. ABDOMEN: Lung bases: Minimal bilateral pleural effusions. Superimposed consolidations are present, left grea ter than right. Heart size is normal. Solid organs: Liver is normal in size and enhancement. The spleen is not visualized. Gallbladder abdi been removed. There is pneumobilia. Biliary stent/drain is present. Mild perihepatic fluid is presen t. In the inferior aspect of the gallbladder fossa, there is an ill defined focus of low attenuation , measuring approximately 3.3 cm AP x 2.8 cm transverse. Biliary system is non dilated. Pancreas en hances normally. No adrenal nodules. Kidneys demonstrate normal size and enhancement, without hydro nephrosis. Renal cysts are present bilaterally. Peritoneum and bowel: Bowel loops demonstrate mild, fluid filled prominence of small bowel loops. M ild perihepatic fluid is present. There are minimal to mild scattered areas of fluid in the abdomen and pelvis, including the pericolic gutters and dependent pelvis. Several foci of free air are noted , consistent with recent surgery. Nodes and vessels: No retroperitoneal or mesenteric adenopathy by size criteria. Aorta and inferior vena cava are normal in size. Miscellaneous: No ventral hernias. Several punctate areas of air are noted within the subcutaneous anterior abdominal wall fat. PELVIS: Genitourinary: Bladder wall thickness is normal. Miscellaneous: No inguinal hernias or adenopathy. Bones: No suspicious bony lesions. No vertebral body compression fractures. IMPRESSION: 1. Minimal to mild bilateral pleural effusions a superimposed consolidations the latter can be relate d to atelectasis versus developing pneumonia. 2. Cholecystectomy with biliary drain/stent noted. Pneumobilia is present. There is an ill-defined lo w attenuation presumably fluid collection along the inferior aspect of the gallbladder fossa. This, i n correlation to recent HIDA scan is suggestive of a focus of biliary leak/biloma. 3. Mild appearance of fluid filled small bowel loops suggestive of ileus versus developing partial sm all bowel obstruction. 4. Mild free fluid within the abdomen and pelvis. Minimal areas of free air, consistent with recent s urgery. Dictated by: Amy Marques M.D. on 10/28/2016 at 11:46 Approved by: Amy Marques M.D. on 10/28/2016 at 11:55
[2016-10-28] MEDS ORDERED: Glucose 40% Oral Gel 15 Gm Tube PO PRN (12:50)
--- NOTE | 2016-10-28 14:40 | DRSVH ---
PROCEDURE: X-RAY ABDOMEN, ONE VIEW ([id number]) INDICATIONS: CHECK NG TUBE PLACEMENT TECHNIQUE: One view of the abdomen acquired. COMPARISON: None. FINDINGS: Surgical changes and devices: Nasogastric tube is projecting below the left hemidiaphragm. Bowel: Bowel gas pattern is normal. Soft tissues: No suspicious abdominal calcifications. Visualized solid organ contours appear normal in size. Minimal bilateral pleural effusions a small area of consolidation more notable on the left . Bones: No suspicious bony lesions. IMPRESSION: Nasogastric tube as above. Dictated by: Amy Marques M.D. on 10/28/2016 at 14:38 Approved by: Amy Marques M.D. on 10/28/2016 at 14:39
[2016-10-28] MEDS: cefTRIAXone Inj 2,000 MG in Dextrose 5% Minibag Plus 50 ML IV SCH (16:18)
[2016-10-28] MEDS: Insulin LISPRO 300 Unit/3 mL Inj SUBQ SCH ×2 (17:30→22:00)
[2016-10-29] VITALS (11 sets, daily range): BP systolic 129–156; BP diastolic 72–85; PULSE 66–107; RESP 16–19; O2SAT 92–98
[2016-10-29] MEDS: Heparin 5,000 Unit/mL Inj SUBQ SCH ×3 (00:37→16:28)
[2016-10-29] MEDS: metroNIDAZOLE Inj 500 MG in IV Premix 1 EACH IV SCH ×2 (02:38→15:18)
[2016-10-29 06:53] LABS: BASOPHILS % (AUTO) 0.2 % (0-3); EOSINOPHILS % (AUTO) 3.9 % (0-5); MONOCYTES % (AUTO) 8.9 % (4-12); Mean Corpuscular Hemoglobin 28.8 pg (27.0-35.0); Mean Corpuscular Volume 91.5 fL (81-100); NEUTROPHILS % (AUTO) 67.6 % (40-74); Platelet Count 318 bil/L (150-400)
[2016-10-29] MEDS: Insulin LISPRO 300 Unit/3 mL Inj SUBQ SCH ×4 (07:46→21:46)
[2016-10-29] MEDS: Senna-Docusate 8.6-50 mg Tablet PO SCH ×2 (07:47→20:30)
[2016-10-29] MEDS: HYDROmorphone 1 mg/mL Inj IVPUSH PRN (07:57)
--- NOTE | 2016-10-29 09:22 | PCM.PNMED ---
Subjective Date of Service Oct 29, 2016 Subjective In bed, NG tube in place, daughter present. Overall improving but still NPO. No fever, did have a BM today. No other problems noted. Exam Vital Signs Vital Sign - Last Date Time Temp Pulse Resp B/P Pulse Ox O2 Delivery O2 Flow Rate FiO2 10/29/16 08:41 92 10/29/16 08:06 Supplement Oxygen 10/29/16 07:52 36.6 17 156/75 96 2.00 Intake and Output 10/28/16 10/28/16 10/29/16 Cumulative From/Thru 15:00 23:00 07:00 10/20/16 20:27 - 10/29/16 05:58 Intake Total 858 ml 2306 ml 694 ml 78141 ml Output Total 450 ml 170 ml 400 ml 7570 ml Balance 408 ml 2136 ml 294 ml 7957 ml Intake Oral 858 ml 120 ml 0 ml 4439 ml IV Total 2186 ml 694 ml 71235 ml Output Urine Total 450 ml 400 ml 7400 ml Gastric Drainage Total 120 ml 120 ml Emesis 50 ml 50 ml # Voids 4 3 1 9 # Bowel Movements 0 0 1 2 Exam Skin; warm and dry, no rash Eyes; anmol and eom intact HENT; adequate hydration, no lesions CV; reg, systolic murmur Lungs; clear anteriorly GI; Soft and benign, diffuse mild tenderness Neuro; cn 2-12 intact, no focal deficits Lab and Diagnostics Result Diagram: 10/29/1618 10/29/1618 X-Rays, CTs and MRIs 10/21/16 - US ABDOMEN, LIMITED IMPRESSION: Cholelithiasis. Prominent common bile duct. Please correlate with serum bilirubin. If clinical symptoms persist or clinical suspicion for pathology is high, MRCP is suggested for further evaluation. Approved by: Marvin Rodriguez M.D. on 10/21/2016 at 12:05 10/21/16 - MR ABDOMEN MRCP IMPRESSION: Essentially nondiagnostic examination due to uncontrollable motion artifact. Dilated extrahepatic bile ducts are again noted however intraluminal filling defects (while not discretely visualized) cannot be excluded due to motion degraded images. Approved by: Epifanio Del Real M.D. on 10/21/2016 at 15:21 10/23/16 - X-RAY OPERATIVE CHOLANGIOGRAM IMPRESSION: Prominence of the extrahepatic bile duct as was seen on prior examination and there are several intraluminal filling defects which may represent gas bubbles. Correlate real-time examination. Approved by: Fabio Stockton M.D. on 10/23/2016 at 10:37 10/25/16 - NM HIDA SCAN IMPRESSION: Progressive accumulation of tracer along the inferior margin of liver, compatible with bile leak. The result was discussed with Moe Huerta on 10/25/2016 at 1405 hours. Approved by: Marvin Rodriguez M.D. on 10/25/2016 at 14:24 Additional Diagnostics 10/26/16 - ERCP IMPRESSION: Low grade bile leak. RECOMMENDATIONS: 1. Continue IV antibiotics. Continue to follow LFTs. 2. Repeat ERCP in 6-8 weeks for biliary stent removal. Kalpana Parks MD 10/26/16 0171 Assessment & Plan 86-year-old woman with a history of atrial fibrillation who presented to the emergency department with an episode of right upper quadrant pain the day prior to admission. Patient had cholecystectomy which was complicated by bile leak, later she had ERCP with moderate sphincterotomy and stent placement 1. Acute Cholecystitis, poa, improving - s/p lap-cholecystectomy, 10-23-16 - s/p ERCP on 10/26/16 with moderate sphincterotomy and stent placement - continue IV antibiotics today Day #7 - defer advancement of diet to surgery 2, Bile leak, improving - HIDA scan was positive for bile leak - s/p ERCP on 10/26/16 with moderate sphincterotomy and stent placement - repeat ERCP in 6-8 weeks with removal of stent 3. Hypertension - Increase metoprolol to 25 mg twice a day 4. Paroxysmal atrial fibrillation, poa, stable - Monitor on telemetry - c/w Metoprolol, ASA - echo with normal systolic function, mil/mod mitral regurg 5. Anemia of chronic disease, poa, stable 6. Hyperglycemia, poa, stable - low dose corection scale - HbA1C pending DVT prophylaxis - subcutaneous heparin Code status: Full code Labs, radiology tests, reviewed. Plan of care, diagnostic procedures and available alternatives were discussed and reviewed with patient/family. All questions answered. Patient/family verbalized understanding, approved and agreed to plan of care. Disposition; - pcp is Dr. Jiménez - lives with daughter in her home VTE Prophylaxis: Sub-Q Heparin (Unfractionated), SCDs VTE Mechanical Devices: Intermittant Pneumatic CD Resuscitation Status: CPR: Attempt Resuscitation Renetta Mckinley MD Oct 29, 2016 09:22
[2016-10-29] MEDS: Dextrose 5% 0.9% NaCl 1,000 ML IV SCH ×2 (10:00→18:08)
--- NOTE | 2016-10-29 10:12 | PROG NOTE ---
[address] [address] PROGRESS NOTE PATIENT: JEIMY PRIEST : 1930 MR#: [id number] ADMIT: 10/21/2016 JOB ID: [id number] DATE: 10/29/2016 SUBJECTIVE: The patient is seen in followup with the video it service manager. She is doing much better today. Her abdominal pain is improved. She has no nausea. She had a very large bowel movement this morning. OBJECTIVE: Temperature 36.6, pulse 89, blood pressure 156/75, saturation 96% on 2 liters. General, she is resting in bed in no acute distress. HEENT: Nasogastric tube is in place with minimal bilious output, output yesterday was 120 cc. Chest is clear. Heart regular rate and rhythm, no murmurs. Abdomen is mildly distended but soft, nontender. Her incisions are clean with no erythema. LABORATORIES: White count is 11.5, hematocrit 34.3, platelets 318. Creatinine 0.36. Glucose 135. Bilirubin 0.4. AST 11, ALT 19, alkaline phosphatase 99. ASSESSMENT AND PLAN: An 86-year-old woman status post laparoscopic cholecystectomy with intraoperative cholangiogram complicated by bile leak, status post endoscopic retrograde cholangiopancreatography with biliary stenting. She is improving. Nasogastric tube will be removed today. Antibiotics should be continued. She will be allowed a clear liquid diet today.
[2016-10-29] MEDS: PrednisoLONE 1% 1 mL Ophthalmic Suspension BOTH_EYES SCH ×3 (11:36→21:47)
[2016-10-29] MEDS: cefTRIAXone Inj 2,000 MG in Dextrose 5% Minibag Plus 50 ML IV SCH (15:46)
[2016-10-29] MEDS: HYDROcodone-APAP 5-325 mg Tablet PO PRN (16:28)
[2016-10-30] VITALS (8 sets, daily range): BP systolic 145–171; BP diastolic 52–74; PULSE 51–99; RESP 16–20; O2SAT 90–100
[2016-10-30] MEDS: Heparin 5,000 Unit/mL Inj SUBQ SCH ×3 (00:27→17:31)
[2016-10-30] MEDS: metroNIDAZOLE Inj 500 MG in IV Premix 1 EACH IV SCH ×2 (02:33→16:13)
[2016-10-30] MEDS: HYDROcodone-APAP 5-325 mg Tablet PO PRN ×2 (02:49→17:42)
[2016-10-30] MEDS: PrednisoLONE 1% 1 mL Ophthalmic Suspension BOTH_EYES SCH ×4 (05:49→22:13)
[2016-10-30] MEDS: Insulin LISPRO 300 Unit/3 mL Inj SUBQ SCH ×4 (08:00→22:00)
[2016-10-30] MEDS: Senna-Docusate 8.6-50 mg Tablet PO SCH ×2 (09:10→20:25)
[2016-10-30 11:10] LABS: Mean Corpuscular Volume 90.9 fL (81-100)
[2016-10-30 11:15] LABS: Mean Corpuscular Hemoglobin 29.1 pg (27.0-35.0); Platelet Count 391 bil/L (150-400)
[2016-10-30] MEDS: Dextrose 5% 0.9% NaCl 1,000 ML IV SCH (11:31)
[2016-10-30 12:10] LABS: BASOPHILS % (AUTO) 0 % (0-3); EOSINOPHILS % (AUTO) 2 % (0-5); MONOCYTES % (AUTO) 11 % (4-12); NEUTROPHILS % (AUTO) 64 % (40-74)
--- NOTE | 2016-10-30 13:10 | PROG NOTE ---
[address] [address] PROGRESS NOTE PATIENT: JEIMY PRIEST : 1930 MR#: [id number] ADMIT: 10/21/2016 JOB ID: [id number] DATE: 10/30/2016 SUBJECTIVE: The patient is seen in followup. Overall, she is improving. She is still complaining of some abdominal pain, but her main complaints today are that her feet hurt and that she is weak. She has no nausea. OBJECTIVE: Temperature 36.7, pulse 80, blood pressure 163/71, saturation 91% on room air. General: She is resting in bed in no acute distress. Chest is clear. Heart: Regular rate and rhythm. No murmurs. Abdomen is distended but soft. Her incisions are clean with no erythema. Bowel tones are present. Labs are pending. ASSESSMENT AND PLAN: An 86-year-old woman, status post laparoscopic cholecystectomy with intraoperative cholangiogram, complicated by a bile leak, status post ERCP with stenting. She is improving. Recommend continuing antibiotics. I do not think she is ready to leave the hospital yet and probably needs 1-2 more days. Physical therapy has been ordered.
--- NOTE | 2016-10-30 15:18 | PCM.PNMED ---
Subjective Date of Service Oct 30, 2016 Subjective Improving slowly. Walked 2 laps on the [place], good bowl movement and did pretty well with diet. Some anxiety, family present. Reviewed surgical note. Exam Vital Signs Vital Sign - Last Date Time Temp Pulse Resp B/P Pulse Ox O2 Delivery O2 Flow Rate FiO2 10/30/16 13:31 Room Air 10/30/16 13:07 37.1 77 18 171/52 100 10/29/16 16:30 2.00 Intake and Output 10/29/16 10/29/16 10/30/16 Cumulative From/Thru 15:00 23:00 07:00 10/20/16 20:27 - 10/30/16 06:30 Intake Total 1981 ml 1078 ml 32281 ml Output Total 1100 ml 600 ml 9270 ml Balance 881 ml 478 ml 9316 ml Intake Oral 1220 ml 370 ml 6029 ml IV Total 761 ml 708 ml 35402 ml Output Urine Total 600 ml 8000 ml Urine/Stool Mix 900 ml 900 ml Gastric Drainage Total 200 ml 320 ml Emesis 50 ml # Voids 2 11 # Bowel Movements 2 2 6 Exam Skin; warm and dry, no rash Eyes; anmol and eom intact HENT; adequate hydration, no lesions CV; reg, systolic murmur noted Lungs; clear anteriorly GI; Soft and benign, diffuse mild tenderness Neuro; cn 2-12 intact, no focal deficits Lab and Diagnostics Result Diagram: 10/30/16 1030 10/30/16 1030 X-Rays, CTs and MRIs 10/21/16 - US ABDOMEN, LIMITED IMPRESSION: Cholelithiasis. Prominent common bile duct. Please correlate with serum bilirubin. If clinical symptoms persist or clinical suspicion for pathology is high, MRCP is suggested for further evaluation. Approved by: Marvin Rodriguez M.D. on 10/21/2016 at 12:05 10/21/16 - MR ABDOMEN MRCP IMPRESSION: Essentially nondiagnostic examination due to uncontrollable motion artifact. Dilated extrahepatic bile ducts are again noted however intraluminal filling defects (while not discretely visualized) cannot be excluded due to motion degraded images. Approved by: Epifanio Del Real M.D. on 10/21/2016 at 15:21 10/23/16 - X-RAY OPERATIVE CHOLANGIOGRAM IMPRESSION: Prominence of the extrahepatic bile duct as was seen on prior examination and there are several intraluminal filling defects which may represent gas bubbles. Correlate real-time examination. Approved by: Fabio Stockton M.D. on 10/23/2016 at 10:37 10/25/16 - NM HIDA SCAN IMPRESSION: Progressive accumulation of tracer along the inferior margin of liver, compatible with bile leak. The result was discussed with Moe Huerta on 10/25/2016 at 1405 hours. Approved by: Marvin Rodriguez M.D. on 10/25/2016 at 14:24 Additional Diagnostics 10/26/16 - ERCP IMPRESSION: Low grade bile leak. RECOMMENDATIONS: 1. Continue IV antibiotics. Continue to follow LFTs. 2. Repeat ERCP in 6-8 weeks for biliary stent removal. Kalpana Parks MD 10/26/16 4853 Assessment & Plan 86-year-old woman with a history of atrial fibrillation who presented to the emergency department with an episode of right upper quadrant pain the day prior to admission. Patient had cholecystectomy which was complicated by bile leak, later she had ERCP with moderate sphincterotomy and stent placement 1. Acute Cholecystitis, poa, improving - s/p lap-cholecystectomy, 10-23-16 - s/p ERCP on 10/26/16 with moderate sphincterotomy and stent placement - continue IV antibiotics today Day #8 - tolerating diet - repeat procal and bmp tomorrow am -pain management with IV dilaudid sill needed 2, Bile leak, improving - HIDA scan was positive for bile leak - s/p ERCP on 10/26/16 with moderate sphincterotomy and stent placement - repeat ERCP in 6-8 weeks with removal of stent 3. Hypertension - Increase metoprolol to 25 mg twice a day 4. Paroxysmal atrial fibrillation, poa, stable - Monitor on telemetry - c/w Metoprolol, ASA - echo with normal systolic function, mil/mod mitral regurg 5. Anemia of chronic disease, poa, stable 6. Hyperglycemia, poa, stable - low dose corection scale - 6.3 -d/c d5ns today DVT prophylaxis - subcutaneous heparin Code status: Full code Labs, radiology tests, reviewed. Plan of care, diagnostic procedures and available alternatives were discussed and reviewed with patient/family. All questions answered. Patient/family verbalized understanding, approved and agreed to plan of care. Disposition; - pcp is Dr. Jiménez - lives with daughter in her home VTE Prophylaxis: Sub-Q Heparin (Unfractionated), SCDs VTE Mechanical Devices: Intermittant Pneumatic CD Resuscitation Status: CPR: Attempt Resuscitation Renetta Mckinley MD Oct 30, 2016 15:18
[2016-10-30] MEDS: cefTRIAXone Inj 2,000 MG in Dextrose 5% Minibag Plus 50 ML IV SCH (16:13)
[2016-10-31] MEDS: Heparin 5,000 Unit/mL Inj SUBQ SCH ×4 (00:15→23:54)
[2016-10-31] MEDS: metroNIDAZOLE Inj 500 MG in IV Premix 1 EACH IV SCH ×2 (02:59→14:42)
[2016-10-31 05:00] VITALS: BP 133/70; PULSE 82; RESP 18; O2SAT 95
[2016-10-31] MEDS: PrednisoLONE 1% 1 mL Ophthalmic Suspension BOTH_EYES SCH ×4 (06:36→20:56)
[2016-10-31] MEDS: Insulin LISPRO 300 Unit/3 mL Inj SUBQ SCH ×4 (08:00→22:00)
[2016-10-31 08:30] VITALS: BP 169/76; PULSE 78; RESP 18; O2SAT 95
[2016-10-31] MEDS: Senna-Docusate 8.6-50 mg Tablet PO SCH ×2 (08:59→20:56)
[2016-10-31 09:10] VITALS: PULSE 86
--- NOTE | 2016-10-31 09:13 | PCM.PNMED ---
Subjective Date of Service Oct 31, 2016 Subjective Improving slowly. Ate brekfast today, little discomfort and nausea but able to finish. Anxious. Has been up and out of bed a bit. Exam Vital Signs Vital Sign - Last Date Time Temp Pulse Resp B/P Pulse Ox O2 Delivery O2 Flow Rate FiO2 10/31/16 08:30 36.6 78 18 169/76 95 Room Air 10/29/16 16:30 2.00 Intake and Output 10/30/16 10/30/16 10/31/16 Cumulative From/Thru 15:00 23:00 07:00 10/20/16 20:27 - 10/31/16 05:00 Intake Total 1600 ml 800 ml 83754 ml Output Total 1200 ml 1150 ml 10952 ml Balance 400 ml -350 ml 9366 ml Intake Oral 520 ml 800 ml 7349 ml IV Total 1080 ml 18802 ml Output Urine Total 1200 ml 1150 ml 08588 ml Urine/Stool Mix 900 ml Gastric Drainage Total 320 ml Emesis 50 ml # Voids 11 # Bowel Movements 2 1 9 Exam Skin; warm and dry, no rash Eyes; anmol and eom intact HENT; adequate hydration, no lesions CV; reg, systolic murmur Lungs; clear anteriorly GI; Soft and benign, diffuse mild tenderness throughout, benign Neuro; cn 2-12 intact, no focal deficits Lab and Diagnostics Result Diagram: 10/30/16 1030 10/31/16 0605 X-Rays, CTs and MRIs 10/21/16 - US ABDOMEN, LIMITED IMPRESSION: Cholelithiasis. Prominent common bile duct. Please correlate with serum bilirubin. If clinical symptoms persist or clinical suspicion for pathology is high, MRCP is suggested for further evaluation. Approved by: Marvin Rodriguez M.D. on 10/21/2016 at 12:05 10/21/16 - MR ABDOMEN MRCP IMPRESSION: Essentially nondiagnostic examination due to uncontrollable motion artifact. Dilated extrahepatic bile ducts are again noted however intraluminal filling defects (while not discretely visualized) cannot be excluded due to motion degraded images. Approved by: Epifanio Del Real M.D. on 10/21/2016 at 15:21 10/23/16 - X-RAY OPERATIVE CHOLANGIOGRAM IMPRESSION: Prominence of the extrahepatic bile duct as was seen on prior examination and there are several intraluminal filling defects which may represent gas bubbles. Correlate real-time examination. Approved by: Fabio Stockton M.D. on 10/23/2016 at 10:37 10/25/16 - NM HIDA SCAN IMPRESSION: Progressive accumulation of tracer along the inferior margin of liver, compatible with bile leak. The result was discussed with Moe Huerta on 10/25/2016 at 1405 hours. Approved by: Marvin Rodriguez M.D. on 10/25/2016 at 14:24 Additional Diagnostics 10/26/16 - ERCP IMPRESSION: Low grade bile leak. RECOMMENDATIONS: 1. Continue IV antibiotics. Continue to follow LFTs. 2. Repeat ERCP in 6-8 weeks for biliary stent removal. Kalpana Parks MD 10/26/16 4463 Assessment & Plan 86-year-old woman with a history of atrial fibrillation who presented to the emergency department with an episode of right upper quadrant pain the day prior to admission. Patient had cholecystectomy which was complicated by bile leak, later she had ERCP with moderate sphincterotomy and stent placement 1. Acute Cholecystitis, poa, improving - s/p lap-cholecystectomy, 10-23-16 - s/p ERCP on 10/26/16 with moderate sphincterotomy and stent placement - continue IV antibiotics today Day #9 - tolerating diet - pain management with IV dilaudid sill needed at times 2, Bile leak, improving - HIDA scan was positive for bile leak - s/p ERCP on 10/26/16 with moderate sphincterotomy and stent placement - repeat ERCP in 6-8 weeks with removal of stent 3. Hypertension - Increase metoprolol to 25 mg twice a day - bmpin am, replace K today (10 qid KCl) 4. Paroxysmal atrial fibrillation, poa, stable - Monitor on telemetry - c/w Metoprolol, ASA - echo with normal systolic function, mil/mod mitral regurg 5. Anemia of chronic disease, poa, stable 6. Hyperglycemia, poa, stable - low dose corection scale - 6.3 -d/c d5ns today DVT prophylaxis - subcutaneous heparin Code status: Full code Labs, radiology tests, reviewed. Plan of care, diagnostic procedures and available alternatives were discussed and reviewed with patient/family. All questions answered. Patient/family verbalized understanding, approved and agreed to plan of care. Disposition; - pcp is Dr. Jiménez - lives with daughter in her home VTE Prophylaxis: Sub-Q Heparin (Unfractionated), SCDs VTE Mechanical Devices: Intermittant Pneumatic CD Resuscitation Status: CPR: Attempt Resuscitation Renetta Mckinley MD Oct 31, 2016 09:13
--- NOTE | 2016-10-31 11:33 | PCM.PNSURG ---
Subjective Date of Service: Oct 31, 2016 Date of Service: Oct 31, 2016 Visit Information: Reason for Visit Hepatitis Surgery/Surgery Date lap barney w/cholangiogram 10/23/16 Post-Op Day # 8 Date of Admission: Oct 21, 2016 at 01:19 Hospital Day # 10 Subjective: SUBJECTIVE: Haley reports some continued nausea and only minimal epigastric discomfort. Her primary concerns are weakness and feeling low energy. Overall she is improving quite well. She worked with Physical Therapy yesterday and walked out on the unit. She is tolerating a diet. Objective Vital Sign- Last 8 Hours Date Time Temp Pulse Resp B/P Pulse Ox O2 Delivery O2 Flow Rate FiO2 10/31/16 09:10 86 10/31/16 08:30 36.6 78 18 169/76 95 Room Air 10/31/16 05:00 36.6 82 18 133/70 95 Room Air Intake and Output- Last 8 Hour 10/31/16 Cumulative From/Thru 07:00 10/20/16 20:27 - 10/31/16 05:00 Intake Total 800 ml 77189 ml Output Total 1150 ml 19795 ml Balance -350 ml 9366 ml Intake Oral 800 ml 7349 ml IV Total 28548 ml Output Urine Total 1150 ml 59163 ml Urine/Stool Mix 900 ml Gastric Drainage Total 320 ml Emesis 50 ml # Voids 11 # Bowel Movements 1 9 General: Alert, Oriented X3, Cooperative, No Acute Distress Lungs: Clear to Auscultation, Normal Air Movement Heart: Regular Rate/Rhythm Abdomen: Soft, Appropriately tender, Non-distended, Other (Incisions are c/d/i with steri strips in place.) Result Diagram: 10/30/16 1030 10/31/16 0605 Assessment & Plan Impression 86F s/p laparoscopic cholecystecomty with IOC, complicated by bile leak, s/p ERCP with stenting. Continue antibiotics today (Ceftriaxone/Flagyl), day 7. Stop tomorrow morning. Pain is well controlled on current regimen. Continue physicial therapy. If making adequate progress will likely go home tomorrow. Tolerating diet, pain well controlled, no emesis, return of bowel function. Problems: VTE Prophylaxis: Sub-Q Heparin (Unfractionated), SCDs Resuscitation Status: CPR: Attempt Resuscitation Deal,Frances Rosario MD Oct 31, 2016 11:33
--- NOTE | 2016-10-31 12:44 | PCM.PNMED ---
Subjective Date of Service Oct 31, 2016 Subjective GASTROENTEROLOGY PROGRESS NOTE: Attending Physician: Kalpana Parks MD Resident Physician: Negrita Valdez DO No acute events overnight. Patient is s/p laparoscopic cholecystectomy 8 days ago complicated by postoperative bile leak. Now s/p ERCP on 10/26/16. LFTs within normal limits and WBC trended down, most recently 10.4. Patient remains afebrile and abdominal pain is tolerable and well controlled. She is tolerating her diet and reports pain worse with ambulation and improved with rest. Exam Vital Signs Vital Sign - Last Date Time Temp Pulse Resp B/P Pulse Ox O2 Delivery O2 Flow Rate FiO2 10/31/16 09:10 86 10/31/16 08:30 36.6 18 169/76 95 Room Air 10/29/16 16:30 2.00 Intake and Output 10/30/16 10/30/16 10/31/16 Cumulative From/Thru 15:00 23:00 07:00 10/20/16 20:27 - 10/31/16 05:00 Intake Total 1600 ml 800 ml 72971 ml Output Total 1200 ml 1150 ml 96017 ml Balance 400 ml -350 ml 9366 ml Intake Oral 520 ml 800 ml 7349 ml IV Total 1080 ml 65589 ml Output Urine Total 1200 ml 1150 ml 72379 ml Urine/Stool Mix 900 ml Gastric Drainage Total 320 ml Emesis 50 ml # Voids 11 # Bowel Movements 2 1 9 Exam General: Elderly, woman in no acute distress. Lungs: Clear to auscultation without crackles, rhonchi or wheezes Cardiovascular: Regular rate and rhythm. No murmurs Abdomen: Soft, nondistended, mild tenderness to palpation diffusely, laparoscopic incisions covered-dressing clean, dry and intact without drainage. Hypoactive bowel tones. Extremities: Mild edema at the ankle bilaterally. Skin: Warm and dry. No obvious rashes or ulcerations IVs and Medications Medications Reviewed: Medications were reviewed in detail Lab and Diagnostics Laboratory Tests Test 10/31/16 06:05 Sodium Level 139mEq/L (134-144) Potassium Level 3.1mEq/L (3.5-5.2) Chloride Level 97mEq/L (97-108) Carbon Dioxide Level 28mmol/L (18-29) Blood Urea Nitrogen 2mg/dL (8-27) Creatinine < 0.30mg/dL (0.57-1.00) Estimat Glomerular Filtration Rate 302mL/min (>59) Glucose Level 135mg/dL (60-99) Calcium Level 8.0mg/dL (8.5-10.1) Procalcitonin 0.10ng/mL (0.00-0.08) Microbiology 10/20/16 Blood Culture - NO GROWTH AFTER 5 DAYS 10/21/16 Urine Culture - Mixed Urogenital Rosi Result Diagram: 10/30/16 1030 10/31/16 0605 X-Rays, CTs and MRIs 10/28/16 - X-RAY ABDOMEN, ONE VIEW IMPRESSION: Nasogastric tube as above. Approved by: Amy Marques M.D. on 10/28/2016 at 14:39 10/28/16 - CT ABDOMEN AND PELVIS WITH CONTRAST IMPRESSION: 1. Minimal to mild bilateral pleural effusions a superimposed consolidations the latter can be related to atelectasis versus developing pneumonia. 2. Cholecystectomy with biliary drain/stent noted. Pneumobilia is present. There is an ill-defined low attenuation presumably fluid collection along the inferior aspect of the gallbladder fossa. This, in correlation to recent HIDA scan is suggestive of a focus of biliary leak/biloma. 3. Mild appearance of fluid filled small bowel loops suggestive of ileus versus developing partial small bowel obstruction. 4. Mild free fluid within the abdomen and pelvis. Minimal areas of free air, consistent with recent surgery. Approved by: Amy Marques M.D. on 10/28/2016 at 11:55 . Additional Diagnostics 10/26/16 - ERCP IMPRESSION: Low grade bile leak. RECOMMENDATIONS: 1. Continue IV antibiotics. Continue to follow LFTs. 2. Repeat ERCP in 6-8 weeks for biliary stent removal. Kalpana Parks MD 10/26/16 7352 Assessment & Plan 86-year-old woman with a history of atrial fibrillation who presented to the emergency department with abdominal pain that started the day prior to admission. Acute cholecystitis s/p laparoscopic cholecystectomy 8 days ago complicated by a bile leak. Now s/p ERCP with biliary stent placement on 10/26/16 . - LFTs within normal and abdominal pain significantly improved. - No systemic signs of infection. WBC essentially normal, 10.4 and procalcitonin trended down. - Recommend continue antibiotics through today to complete 7 seven course. - From a GI standpoint stable for discharge with plan for repeat ERCP in 6-8 weeks for biliary stent removal. Additional problems managed by primary medicine team: -History of atrial fibrillation as per admission -History of bronchitis without diagnosis of COPD . VTE Prophylaxis: Sub-Q Heparin (Unfractionated), SCDs VTE Mechanical Devices: Intermittant Pneumatic CD Resuscitation Status: CPR: Attempt Resuscitation Attending Statement pt seen and examined she is tolerating regular diet family present stated she is not having abdominal pain, nausea or vomiting she has had a bowel movement ok to D/C from GI standpoint she will need repeat ERCP in 6-8 weeks for stent removal. Negrita Valdez DO Oct 31, 2016 12:44 Kalpana Parks MD Nov 01, 2016 19:11
[2016-10-31] MEDS: HYDROcodone-APAP 5-325 mg Tablet PO PRN ×2 (13:35→22:47)
[2016-10-31] MEDS: cefTRIAXone Inj 2,000 MG in Dextrose 5% Minibag Plus 50 ML IV SCH (16:19)
[2016-10-31 19:35] VITALS: BP 146/80; PULSE 100; RESP 20; O2SAT 94
[2016-11-01] MEDS: metroNIDAZOLE Inj 500 MG in IV Premix 1 EACH IV SCH ×2 (02:58→14:30)
[2016-11-01 04:51] VITALS: BP 146/69; PULSE 80; RESP 18; O2SAT 95
[2016-11-01] MEDS: PrednisoLONE 1% 1 mL Ophthalmic Suspension BOTH_EYES SCH ×3 (06:18→17:42)
[2016-11-01] MEDS: Insulin LISPRO 300 Unit/3 mL Inj SUBQ SCH ×3 (08:00→17:30)
[2016-11-01] MEDS ORDERED: Potassium Chloride 20 mEq SR Tablet PO ONE (08:05)
[2016-11-01] MEDS: Senna-Docusate 8.6-50 mg Tablet PO SCH (08:50)
[2016-11-01] MEDS: Heparin 5,000 Unit/mL Inj SUBQ SCH ×2 (08:50→16:30)
--- NOTE | 2016-11-01 09:07 | PCM.PNSURG ---
Subjective Date of Service: Nov 01, 2016 Date of Service: Nov 01, 2016 Visit Information: Reason for Visit Hepatitis Surgery/Surgery Date lap barney w/cholangiogram 10/23/16 Post-Op Day # 9 Date of Admission: Oct 21, 2016 at 01:19 Hospital Day # Subjective: Patient able to tolerate a general diet with anti-E medics & without significant nausea or vomiting. Although her fatigue did improve with eating the patient did indicate mild-moderate GI upset with more acidic foods like tomatoes. No reports of dizziness & improved leg swelling with more regular ambulation supervised by physical therapy who will give there disposition recommendations. Pain has significantly improved throughout hospital course. The patient is voiding & moving her bowels regularly. Overall she feels better than before her surgery & GI procedure. Postop General: Other Gastrointestinal: Tolerating Oral Feedings, Passing Flatus, Passing Stool Pain Management: No or Minimal Pain Postop Activity: Ambulates with Assist Device Objective Vital Sign- Last 8 Hours Date Time Temp Pulse Resp B/P Pulse Ox O2 Delivery O2 Flow Rate FiO2 11/01/16 04:51 36.8 80 18 146/69 95 Room Air 11/01/16 03:49 Supplement Oxygen Intake and Output- Last 8 Hour 11/01/16 Cumulative From/Thru 06:59 10/20/16 20:27 - 11/01/16 05:59 Intake Total 300 ml 66472 ml Output Total 73918 ml Balance 300 ml 9734 ml Intake Oral 300 ml 7967 ml IV Total 74364 ml Output Urine Total 32781 ml Urine/Stool Mix 900 ml Gastric Drainage Total 320 ml Emesis 50 ml # Voids 1 12 # Bowel Movements 0 10 General: Alert, Cooperative, No Acute Distress Lungs: Clear to Auscultation Heart: Exam Unremarkable Abdomen: Soft, Appropriately tender, Non-distended SURGICAL WOUND : Wound General Appearence: Steri Strips, Intact, Well Approximated, No Erythema, No Discharge, No Inflammatory Changes Dressing & Drainage Status: Intact Extremities: Thigh&Calf Soft/Nontender Neuro: Normal Speech Result Diagram: 10/30/16 1030 11/01/16 0600 Assessment & Plan Impression Primary Diagnoses: 1. Acute cholecystitis 2. Status post laparoscopic cholecystectomy with cholangiogram: Stable for discharge POD # 9 w/ confirmed small bile leak on ERCP with biliary stent placement. Other Medical History: Obesity Cataracts Valvular heart disease Glaucoma Atrial fibrillation Urinary tract infections Problems: Plan 1. DC home today 2. Follow-up in 2 weeks with PA in outpatient general surgery clinic 3. Follow-up in 2 weeks with GI in outpatient clinic 4. Review Icelandic verbal & written instructions 5. Discharge Rx's when necessary 6. Staff to arrange follow-up appointments VTE Prophylaxis: Sub-Q Heparin (Unfractionated), SCDs Resuscitation Status: CPR: Attempt Resuscitation copies to: Arminda Jimnéez MD, Scott PA-C Nov 01, 2016 09:07
--- NOTE | 2016-11-01 10:13 | PCM.DISURG ---
Surgical Discharge Instruction Date of Service Nov 01, 2016 Dates of Hospitalization Date of Hospital Admission Oct 21, 2016 at 01:19 Providers Admitting Physician: Yon Moody MD Primary Care Physician: Arminda Jiménez MD Attending Physician: Joey Borwne MD Discharge Diagnosis Discharge Diagnosis Primary Diagnoses: 1. Acute cholecystitis 2. Status post laparoscopic cholecystectomy with cholangiogram & postoperative bile leak 3. Status post ERCP with biliary stenting Other Medical History: Obesity Cataracts Valvular heart disease Glaucoma Atrial fibrillation Urinary tract infections Diet Discharge Diet: Low fat Activity Discharge Activity-General: Be up and about, Activity as pain allows, Activity as energy allows, Restrict lifting to no greater than (5 pounds) Dressing and Incisional Care Dressing Care: Keep dressing clean, dry & intact, Allow Steri Stripes to fall off (or remove in 1 week) Hygiene: May shower, DO NOT soak incision under water (for 2-3 weeks) Additional Instructions Additional Instructions Avoid large or highly acidic meals & stay hydrated with small sips of water often. Follow Up Plan Follow Up Plan 1. Follow up in 2 weeks with PA and outpatient general surgery clinic 2. Follow-up in [address] Parks in outpatient gastroenterology clinic Follow-up Provider (F9): Horacio Cochran PA-C Call your provider for: Fever, Chills, Shortness of breath, Increasing abdominal pain, Nausea, Vomiting, Wound redness, Increasing wound pain, Warmth to touch, Discharge @ incision, pus discharge Moe Huerta PA-C Nov 01, 2016 10:13
[2016-11-01 10:20] VITALS: BP 161/82; PULSE 79; RESP 20; O2SAT 97
[2016-11-01] MEDS ORDERED: ONDA4TAB9 PO (10:32)
[2016-11-01] MEDS ORDERED: POLY17PO6 PO (10:33)
[2016-11-01] MEDS ORDERED: HYDR-4003 PO (10:35)
[2016-11-01 13:45] VITALS: BP 163/71; PULSE 79; RESP 18; O2SAT 97
[2016-11-01] MEDS: cefTRIAXone Inj 2,000 MG in Dextrose 5% Minibag Plus 50 ML IV SCH (15:00)
--- NOTE | 2016-11-01 17:23 | PCM.PNMED ---
Subjective Date of Service Nov 01, 2016 Subjective GASTROENTEROLOGY PROGRESS NOTE: Attending Physician: Kalpana Parks MD Resident Physician: Negrita Valdez DO No acute events overnight. Patient is s/p laparoscopic cholecystectomy 9 days ago complicated by postoperative bile leak. Now s/p ERCP on 10/26/16. Patient is tolerating her diet and is doing well with physical therapy. No new symptoms or concerns. Exam Vital Signs Vital Sign - Last Date Time Temp Pulse Resp B/P Pulse Ox O2 Delivery O2 Flow Rate FiO2 11/01/16 13:45 37.7 79 18 163/71 97 Room Air 10/29/16 16:30 2.00 Intake and Output 10/31/16 10/31/16 11/01/16 Cumulative From/Thru 15:00 23:00 07:00 10/20/16 20:27 - 11/01/16 05:59 Intake Total 468 ml 300 ml 93928 ml Output Total 400 ml 29810 ml Balance 68 ml 300 ml 9734 ml Intake Oral 318 ml 300 ml 7967 ml IV Total 150 ml 30150 ml Output Urine Total 400 ml 93507 ml Urine/Stool Mix 900 ml Gastric Drainage Total 320 ml Emesis 50 ml # Voids 1 12 # Bowel Movements 1 0 10 Exam General: Elderly, woman in no acute distress. Lungs: Clear to auscultation without crackles, rhonchi or wheezes Cardiovascular: Regular rate and rhythm. No murmurs Abdomen: Soft, nondistended, nontender. Hypoactive bowel tones. Extremities: Mild edema at the ankle bilaterally. Skin: Warm and dry. No obvious rashes or ulcerations IVs and Medications Medications Reviewed: Medications were reviewed in detail Lab and Diagnostics Laboratory Tests Test 11/01/16 06:00 Sodium Level 141mEq/L (134-144) Potassium Level 3.2mEq/L (3.5-5.2) Chloride Level 96mEq/L (97-108) Carbon Dioxide Level 31mmol/L (18-29) Blood Urea Nitrogen 3mg/dL (8-27) Creatinine 0.41mg/dL (0.57-1.00) Estimat Glomerular Filtration Rate 211mL/min (>59) Glucose Level 122mg/dL (60-99) Calcium Level 8.2mg/dL (8.5-10.1) Magnesium Level 1.8mg/dL (1.6-2.6) Microbiology 10/20/16 Blood Culture - NO GROWTH AFTER 5 DAYS 10/21/16 Urine Culture - Mixed Urogenital Rsoi Result Diagram: 10/30/16 1030 11/01/16 0600 X-Rays, CTs and MRIs 10/28/16 - X-RAY ABDOMEN, ONE VIEW IMPRESSION: Nasogastric tube as above. Approved by: Amy Marques M.D. on 10/28/2016 at 14:39 10/28/16 - CT ABDOMEN AND PELVIS WITH CONTRAST IMPRESSION: 1. Minimal to mild bilateral pleural effusions a superimposed consolidations the latter can be related to atelectasis versus developing pneumonia. 2. Cholecystectomy with biliary drain/stent noted. Pneumobilia is present. There is an ill-defined low attenuation presumably fluid collection along the inferior aspect of the gallbladder fossa. This, in correlation to recent HIDA scan is suggestive of a focus of biliary leak/biloma. 3. Mild appearance of fluid filled small bowel loops suggestive of ileus versus developing partial small bowel obstruction. 4. Mild free fluid within the abdomen and pelvis. Minimal areas of free air, consistent with recent surgery. Approved by: Amy Marques M.D. on 10/28/2016 at 11:55 . Additional Diagnostics 10/26/16 - ERCP IMPRESSION: Low grade bile leak. RECOMMENDATIONS: 1. Continue IV antibiotics. Continue to follow LFTs. 2. Repeat ERCP in 6-8 weeks for biliary stent removal. Kalpana Parks MD 10/26/16 1041 Assessment & Plan 86-year-old woman with a history of atrial fibrillation who presented to the emergency department with abdominal pain that started the day prior to admission. Acute cholecystitis s/p laparoscopic cholecystectomy 8 days ago complicated by a bile leak. Now s/p ERCP with biliary stent placement on 10/26/16 . - LFTs within normal and abdominal pain significantly improved. - No systemic signs of infection. Today is day 8 of antibiotics, could likely discontinue antibiotics today pending General Surgery's approval. - From a GI standpoint stable for discharge with plan for repeat ERCP in 6-8 weeks for biliary stent removal. Additional problems managed by primary medicine team: -History of atrial fibrillation as per admission -History of bronchitis without diagnosis of COPD . VTE Prophylaxis: Sub-Q Heparin (Unfractionated), SCDs VTE Mechanical Devices: Anti-Embolic stockings Resuscitation Status: CPR: Attempt Resuscitation Negrita Valdez DO Nov 01, 2016 17:23 Negrita Valdez DO Nov 01, 2016 17:23
[2016-11-01] MEDS ORDERED: POTA10CA42 PO (17:55)
--- NOTE | 2016-11-01 22:53 | PCM.DC.MED ---
Discharge Summary Date of Service Nov 01, 2016 Dates of Hospitalization Date of Hospital Admission Oct 21, 2016 at 01:19 Date of Discharge: Nov 01, 2016 Providers: Admitting Physician: Yon Moody MD Primary Care Physician: Arminda Jiménez MD Attending Physician: Joey Browne MD Diagnosis at Time of Discharge Diagnosis at Time of Discharge Acute Cholecystis s/p cholecystectomy, Bile leak complication that required ERCP w/ stenting Consultations GI, Gen Surg, PT/OT Procedures XRay, CTs & MRIs 10/28/16 - X-RAY ABDOMEN, ONE VIEW IMPRESSION: Nasogastric tube as above. Approved by: Amy Marques M.D. on 10/28/2016 at 14:39 10/28/16 - CT ABDOMEN AND PELVIS WITH CONTRAST IMPRESSION: 1. Minimal to mild bilateral pleural effusions a superimposed consolidations the latter can be related to atelectasis versus developing pneumonia. 2. Cholecystectomy with biliary drain/stent noted. Pneumobilia is present. There is an ill-defined low attenuation presumably fluid collection along the inferior aspect of the gallbladder fossa. This, in correlation to recent HIDA scan is suggestive of a focus of biliary leak/biloma. 3. Mild appearance of fluid filled small bowel loops suggestive of ileus versus developing partial small bowel obstruction. 4. Mild free fluid within the abdomen and pelvis. Minimal areas of free air, consistent with recent surgery. Approved by: Amy Marques M.D. on 10/28/2016 at 11:55 . PROCEDURE: X-RAY E.R.C. BILIARY DUCTS ([id number]) INDICATIONS: BILE LEAK IMPRESSION: Limited exam demonstrating grossly normal extrahepatic bile duct, although the distal common bile duct is not completely opacified and cannot be thoroughly assessed. Correlate with real time examination. Biliary endoprosthesis placed. Dictated by: Michael Wise RRA Interpreted: Sophy Navarro MD on 10/27/2016 at 9:07 Approved by: Sophy Navarro M.D. on 10/27/2016 at 17:03 PROCEDURE: NM HIDA SCAN BILE LEAK RADIOPHARMACEUTICAL: 4.6 mCi Tc-99m mebrofenin IV. INDICATIONS: Abdominal pain after cholecystectomy. Evaluate for bile leak. IMPRESSION: Progressive accumulation of tracer along the inferior margin of liver, compatible with bile leak. Dictated by: Marvin Rodriguez M.D. on 10/25/2016 at 13:44 Approved by: Marvin Rodriguez M.D. on 10/25/2016 at 13:51 ADDENDUM: The result was discussed with Joaquín Huerta on 10/25/2016 at 1405 hours. Dictated by: Marvin Rodriguez M.D. on 10/25/2016 at 14:23 Approved by: Marvin Rodriguez M.D. on 10/25/2016 at 14:24 Report status: Addendum REPORT#: [id number] - PROCEDURE: X-RAY OPERATIVE CHOLANGIOGRAM ([id number]) INDICATIONS: CHOLELITHIASIS COMPARISON: Merged With [facility], MR, MR ABD MRCP, 10/21/2016, 13:39. Merged With [facility], US, ABDOMEN LTD, 10/20/2016, 22:14. FINDINGS: Biliary ducts: The surgeon injected contrast into the biliary ducts after cannulation of the cystic duct stump. Visualized intra- and extrahepatic bile ducts are normal in caliber, without strictures. Several small intraluminal filling defects which may represent gas bubbles. No evidence for iatrogenic ductal injury. Duodenum: Contrast flows promptly through the sphincter of Oddi into the duodenum, which appears normal in caliber. IMPRESSION: Prominence of the extrahepatic bile duct as was seen on prior examination and there are several intraluminal filling defects which may represent gas bubbles. Correlate real-time examination. Dictated by: Michael Wise [facility] Interpreted: Ketan Stockton MD on 10/23/2016 at 9: 37 Approved by: Fabio Stockton M.D. on 10/23/2016 at 10:37 Other Diagnostics 10/26/16 - ERCP IMPRESSION: Low grade bile leak. RECOMMENDATIONS: 1. Continue IV antibiotics. Continue to follow LFTs. 2. Repeat ERCP in 6-8 weeks for biliary stent removal. Kalpana Parks MD 10/26/16 8144 Brief History Ms. Ny is an 86-year-old female with a past medical history significant for atrial fibrillation who presented to the ED with extreme right upper quadrant abdominal pain that started yesterday. She states the pain was worse with eating or drinking, and nothing makes it better. The pain is a sharp intermittent pain that does not radiate outside the right upper quadrant. She reports having intermittent fevers with nausea and denies any vomiting, chest pain, diaphoresis, diarrhea, recent diet changes. She has never experienced anything like this before. Hospital Course 86-year-old woman with a history of atrial fibrillation who presented to the emergency department with abdominal pain that started the day prior to admission. Acute Cholecystitis, poa, improving - s/p lap-cholecystectomy, 10-23-16 - s/p ERCP on 10/26/16 with moderate sphincterotomy and stent placement - continue IV antibiotics today Day #9 - tolerating diet - pain management with IV dilaudid sill needed at times -- Gen. surgery and GI services have signed off. Each wound required 2 week follow-up -- Physical therapy has been ordered. They have recommended home health PT OT, the patient/family declined as her insurance did not cover this benefit. Patient has a lot of family support who can help her around the house. Bile leak, acute improving - HIDA scan was positive for bile leak - s/p ERCP on 10/26/16 with moderate sphincterotomy and stent placement - repeat ERCP in 6-8 weeks with removal of stent, GI signed off Hypertension chronic presumed stable - Increase metoprolol to 25 mg twice a day Hypokalemia acute improving -- Patient is monitored and repleted as needed -- Patient is put on 10 mEq daily supplement for 1 week -- Follow BMP lab is given Paroxysmal atrial fibrillation, chronic, stable - Monitor on telemetry, patient was in normal sinus rhythm - c/w Metoprolol, ASA - echo with normal systolic function, mil/mod mitral regurg - We will request that PCP discuss holter monitor/anticoagulation with the patient COPD, present on admission. Chronic. - Continued albuterol 2 puffs every 4 hours Anemia of chronic disease, poa, stable Hyperglycemia, poa, stable - low dose corection scale -A1c 6.3 Sleep Apnea, chronic uncontrolled -- We recommend that the patient follows up with the sleep study as outpatient Concern for aspiration, resolved -- Family expressed concern for aspiration, swallowing evaluation was ordered on the day of discharge. Patient was instructed to sit up and eat slowly by swallow eval /speech eval staff she verbalized her understanding Exam Vital Signs (Last) Date Time Temp Pulse Resp B/P Pulse Ox O2 Delivery O2 Flow Rate FiO2 11/01/16 13:45 37.7 79 18 163/71 97 Room Air 10/29/16 16:30 2.00 Exam General: NAD HEENT: NCAT Skin; warm and dry, no rash, laparoscopic incision sites look clean and dry Eyes; anmol and eom intact HENT; adequate hydration, no lesions CV; reg, systolic murmur Lungs; clear to auscultation no crackles or wheezes GI; Soft and benign, diffuse mild tenderness throughout, benign Neuro; no focal deficits Test 10/20/16 18:54 10/21/16 10:35 10/23/16 05:25 10/28/16 09:30 Lactic Acid Level 1.2mmol/L (0.4-2.0) Urine Color Dark yellow (YELLOW) Urine Appearance Clear (CLEAR,HAZY) Urine pH 6.0 (5.0-8.0) Urine Specific [place] 1.018 (1.003-1.035) Urine Protein Negativemg/dL (NEG,TRACE) Urine Glucose (UA) Negativemg/dL (NEGATIVE) Urine Ketones Negativemg/dL (NEGATIVE) Urine Occult Blood Small (NEGATIVE) Urine Nitrite Positive (NEGATIVE) Urine Bilirubin Small (NEGATIVE) Urine Ictotest Positive (Negative) Urine Urobilinogen Normalmg/dL (NORMAL) Urine Leukocyte Esterase Trace (NEGATIVE) Urine RBC 3-10/hpf (0-2) Urine WBC 6-10/hpf (0-5) Urine Epithelial Cells Few/hpf (NONE-MOD) Urine Crystals None seen (NONE SEEN) Urine Bacteria Few/hpf (NONE-FEW) Urine Hyaline Casts None/lpf (NONE) Urine Granular Casts None seen (NONE SEEN) Urine Waxy Casts None seen (NONE SEEN) Urine Red Blood Cell Casts None seen (NONE SEEN) Urine White Blood Cell Casts None seen (NONE SEEN) Urine Mucus None seen (None Seen) Urine Trichomonas None seen (NONE SEEN) Urine Yeast None (NONE SEEN) Urinalysis Comment None Urine Culture Reflexed Indicated Direct Bilirubin 0.2mg/dL (0.0-0.3) Prothrombin Time 10.0sec (8.1-12.5) Prothromb Time International Ratio 0.94ratio Hemoglobin A1c 6.3% (4.8-5.6) Troponin T 0.010ug/L (0.0-0.011) Lipase 13U/L (13-60) Test 10/30/16 10:30 10/31/16 06:05 11/01/16 06:00 White Blood Count 10.4th/mm3 (3.8-10.1) Red Blood Count 3.61mil/mm3 (3.90-5.20) Hemoglobin 10.5g/dL (12.0-15.6) Hematocrit 32.8% (35.0-46.0) Mean Corpuscular Volume 90.9fL (81-100) Mean Corpuscular Hemoglobin 29.1pg (27.0-35.0) Mean Corpuscular Hemoglobin Concent 32.0% (32.0-37.0) Red Cell Distribution Width 15.6% (12.3-15.4) Platelet Count 391bil/L (150-400) Neutrophils (%) (Auto) 64% (40-74) Lymphocytes (%) (Auto) 20% (14-46) Monocytes (%) (Auto) 11% (4-12) Eosinophils (%) (Auto) 2% (0-5) Basophils (%) (Auto) 0% (0-3) Band Neutrophils % 3% (1-5) Nucleated Red Blood Cells 2/100 WBC (0-24) Total Bilirubin 0.4mg/dL (0.0-1.2) Aspartate Amino Transf (AST/SGOT) 12U/L (0-50) Alanine Aminotransferase (ALT/SGPT) 17U/L (0-32) Alkaline Phosphatase 96U/L (25-165) Total Protein 5.0g/dL (6.4-8.4) Albumin 2.6g/dL (3.4-5.0) Procalcitonin 0.10ng/mL (0.00-0.08) Sodium Level 141mEq/L (134-144) Potassium Level 3.2mEq/L (3.5-5.2) Chloride Level 96mEq/L (97-108) Carbon Dioxide Level 31mmol/L (18-29) Blood Urea Nitrogen 3mg/dL (8-27) Creatinine 0.41mg/dL (0.57-1.00) Estimat Glomerular Filtration Rate 211mL/min (>59) Glucose Level 122mg/dL (60-99) Calcium Level 8.2mg/dL (8.5-10.1) Magnesium Level 1.8mg/dL (1.6-2.6) Discharge Medications Discharge Medications Albuterol HFA (Proair HFA) 8.5 Gm Hfa.aer.ad 2 PUFFS INHALATION Q4H Prescribed by: CHANCE MELENDREZ MD Cefuroxime Axetil (Ceftin) 500 Mg Tablet 500 MG PO BID Prescribed by: CHANCE MELENDREZ MD Metoprolol Succinate ER (Metoprolol Succinate ER) 25 Mg Tab.er.24h 25 MG PO DAILY (Reported) Potassium Chloride (Potassium Chloride) 10 Meq Capsule.er 10 MEQ PO DAILY TAKE WITH FOOD Prescribed by: DAYLIN SHELTON DO Prednisolone Acetate (Pred Forte) 1 Ml Drops.susp 1 GTT OU QID (Reported) As needed Hydrocodone-Acetaminophen 5-325 mg (Hydrocodone-Acetaminophen 5-325 mg) 1 Each Tablet 0.5-1 TABLET PO QID PRN PRN For Severe Pain Prescribed by: JOAQUÍN HUERTA PA-C Ondansetron ODT (Zofran ODT) 4 Mg Tablet 4 MG PO TID PRN PRN For Nausea Prescribed by: JOAQUÍN HUERTA PA-C Polyethylene Glycol 3350 (Miralax) 17 Gm Powd.pack 17 GM PO DAILY PRN PRN For Constipation Prescribed by: JOAQUÍN HUERTA PA-C Followup Plan Follow-up plan 1. Follow up in 2 weeks with [facility] and outpatient general surgery clinic 2. Follow-up in [address] Parks in outpatient gastroenterology clinic Follow-up Provider: Horacio Cochran PA-C Time spent Greater than 30 minutes was spent in preparation of discharge with greater than 50% of that time dedicated to patient counseling and coordination of care. Daylin Shelton DO Nov 01, 2016 22:53
== END 2016-11-01 18:45 | disposition home or self-care (01) | DRG 417 ==
LOC: SED 17:23 → OSC 10-21 01:19
PROVIDERS: ADMIT Hospitalist; ATTEND Hospitalist
PROC: BF001ZZ Plain Radiography of Bile Ducts using Low Osmolar Contrast (ICD-10-PCS; 2016-10-23)
PROC: 0FT44ZZ Resection of Gallbladder, Percutaneous Endoscopic Approach (ICD-10-PCS; principal; 2016-10-23 07:15)
PROC: 0F758DZ Dilation of Right Hepatic Duct with Intraluminal Device, Via Natural or Artificial Opening Endoscopic (ICD-10-PCS; 2016-10-26)
DX: K81.0 Acute cholecystitis (principal); A41.9 Sepsis, unspecified organism; I48.0 Paroxysmal atrial fibrillation; D63.8 Anemia in other chronic diseases classified elsewhere; K91.89 Other postprocedural complications and disorders of digestive system; K83.8 Other specified diseases of biliary tract; Z79.52 Long term (current) use of systemic steroids; H40.9 Unspecified glaucoma; R73.9 Hyperglycemia, unspecified